=== PATIENT | male | born 1955 | race Caucasian/White ===

== ENCOUNTER → 2019-03-16 14:03 | Outpatient (CLI) | payer SELFPAY ==
--- NOTE | 2019-03-16 14:17 | RAD_ITS ---
STUDY: X-RAY CHEST REASON FOR EXAM: Male, 63 years old. COUGH X 5 WEEKS -- SOME SOB TECHNIQUE: Frontal and lateral views of the chest. COMPARISON: None. FINDINGS: The lungs are hyperexpanded. There are coarsened interstitial markings suggestive of mild chronic fibrosis. Scarring in the lung bases. No gross focal infiltrates. No gross effusions. Normal size heart. Normal mediastinum and thang. Normal visualized pulmonary arteries. Normal visualized aortic arch and descending thoracic aorta. There are diffuse degenerative changes of the visualized thoracic spine. Normal visualized ribs, clavicles, and shoulders. There is no demonstrated abnormality of the visualized soft tissue structures of the upper abdomen. RAD/Chest PA and Lateral IMPRESSION: There are findings consistent with COPD. There is no evidence of acute chest disease. Electronically Signed: Angel Cummings MD at 22:12 EST , Service support ,
[2019-03-16 14:46] LABS: Absolute Lymphocyte Count 1.53 X10^3/uL (0.83-4.51); Absolute Neutrophil Count 6.5 X10^3/uL (2.0-7.7); Basophil# 0.04 X10^3/uL; Basophil% 0.5 % (0-1); Eosinophils% 2.3 % (0-5); Hematocrit 48.2 % (40-54); Hemoglobin 15.3 g/dL (13.0-16.5); Lymphocyte # 1.53 X10^3/ul (4.0); Lymphocyte % 17.2 % (19-41); Mean Corp Hgb Conc 31.7 g/dL (32-36); Mean Corpuscular Hgb 28.4 pg (27.0-32.0); Mean Corpuscular Volume 89.6 fL (80-94); Mean Platelet Vol. 10.2 fl (6.2-12.0); Monocyte# 0.57 X10^3/uL; Monocyte% 6.4 % (0-10); NRBC Flagged by Analyzer 0 % (0-5); Neutrophil # 6.47 X10^3/uL (2.7-7.7); Neutrophil % 72.9 % (47-70); Platelet Count 188 K/mm3 (150-450); RBC Distribution Width CV 13.4 % (11.6-14.6); RBC Distribution Width SD 43.3 fl (35.1-43.9); Red Blood Count 5.38 M/mm3 (4.6-6.2); White Blood Count 8.9 K/mm3 (4.4-11.0)
[2019-03-16 15:01] LABS: ALB/GLOB Ratio 0.9 RATIO (0.9-2.4); AST(SGOT) 13 U/L (15-37); Alanine Aminotransfer ALT/SGPT 22 U/L (16-61); Albumin, Serum 3.3 g/dL (3.2-5.0); Alkaline Phosphatase 81 U/L (45-117); Anion Gap 3 (5-15); BUN 13 mg/dL (7-18); BUN/Creat Ratio 11.7 RATIO (10-20); Calcium,Total 8.6 mg/dL (8.5-10.1); Chloride 109 mmol/L (98-107); Creatinine, Serum 1.11 mg/dL (0.70-1.30); EST Glomerular Filtration Rate 71 mL/min (>60); Est Glom Filt Rate - Afr Amer 86 mL/min (>60); Globulin 3.6 g/dL (2.2-4.2); Glucose 87 mg/dL (74-106); Potassium 3.9 mmol/L (3.5-5.1); Protein, Total 6.9 g/dL (6.4-8.2); Sodium Level 142 mmol/L (136-145)
[2019-03-16 15:07] LABS: D-Dimer Quantitative (DVT/PE) 0.35 FEU/ug/m (0.27-0.49)
== END ==
PROVIDERS: Family Provider Internal Medicine; PCP Internal Medicine; Referring Provider Nurse Practitioner; Visit Provider Nurse Practitioner
DX: R05 Cough (principal)
CPT/HCPCS: 36415; 71046; 80053; 85025; 85379

== ENCOUNTER 2023-05-04 08:49 | Day surgery (SDC) | payer SELFPAY ==
[2023-05-04] VITALS (7 sets, daily range): BP systolic 107–141; BP diastolic 72–91; PULSE 63–74; RESP 16–18; TEMP 36.2–36.8; O2SAT 96–99; BMI 30.1
--- OUTSIDE RECORDS SUMMARY | 2023-05-04 09:15 | XMS RPT_ITS | CCD ---
Author Name Unknown Address [address] [place] [address] Organization [facility] Care Team Providers Care Dynamo Repairer Name Role Phone Dayanara Comer Unavailable Isaiah Villegas Unavailable Cherise Richardson Unavailable Angel Vazquez Unavailable Unavailable Lesly Swift Unavailable Unavailable Unavailable Unavailable Medications Completed/Discontinued Medications Medication Drug Class(es) Dates Sig (Normalized) Sig (Original) 200 actuat albuterol 0.09 mg/actuat metered dose inhaler (2 sources) beta2-Adrenergic Agonist Start: 03-04-2019 End: 03-18-2019 take 1 puff(s) by inhalation three times daily ProAir HFA 108 (90 Base) MCG/ACT Inhalation Aerosol Solution 1 (one) Puff tid for 0 days Quantity: 1 {Inhaler} Refills: 0 Ordered: 18-Mar-2019 Angel Vzaquez LPN Start : 04-Mar-2019 End : 18-Mar-2019 Inactive Problems Active Problems Problem Classification Problem Date Documented Da te Episodic/Chronic Chronic obstructive pulmonary disease and bronchiectasis (2 sources) Bronchitis; Translations: [Bronchitis] 03-18-2019 Episodic Influenza (2 sources) Influenza; Translations: [Influenza] 03-18-2019 Episodic Other connective tissue disease (1 source) Muscle weakness of upper limb; Translations: [Decreased strength of upper extremity] 03-18-2019 Episodic Other connective tissue disease (1 source) Imaging of thorax abnormal; Translations: [Abnormal chest xray] 03-18-2019 Episodic Past or Other Problems Problem Classification Problem Date Documented Date Episodic/Chronic Coronary atherosclerosis and other heart disease (1 source) Coronary atherosclerosis and other heart disease External cause codes: Fall (1 source) Accidental fall ; Translations: [Accidental fall, initial encounter] 03-18-2019 Pneumonia (except that caused by tuberculosis or sexually transmitted disease) (4 sources) Pneumonia (except that caused by tuberculosis or sexually transmitted disease) Unclassified (2 sources) Screening status; Translations: [Screening for prostate cancer] Resolved: 02-24-2013 12-05-2014 Unclassified (2 sources) BMI 31.0-31.9,adult Unclassified (11 sources) Unclassified (1 source) Upper respiratory infection, acute Unclassified (6 sources) Non-smoker; Translations: [Non-smoker] 03-18-2019 Unclassified (1 source) Adult general medical exam (V70.9) Unclassified (2 sources) Shoulder joint - range of movement - finding; Translations: [Decreased range of motion of left shoulder] 03-18-2019 Unclassified (1 source) Positive occult stool blood test Unclassified (1 source) Decreased strength of upper extremity Unclassified (1 source) Patient encounter status; Translations: [Adult general medical exam] Resolved: 02-24-2013 01-22-2015 Unclassified (1 source) SCREENING FOR CANCER OF THE PROSTATE (V76.44) Unclassified (1 source) Acute pain of left shoulder Unclassified (3 sources) BMI 30.0-30.9,adult Unclassified (1 source) Abnormal chest xray Unclassified (1 source) Accidental fall, initial encounter Results Test Name Value Interpretation Reference Range Facil ity Vital Signs Date Time Vital Sign Value Performing Clinician Facility 03-18-2019 10:00-0500 BMI (Body Mass Index) 30.28 kg/m2 Dayanara Comer [facility] Work Phone: 03-18-2019 10:00-0500 Body Temperature 97.5 [degF] [facility] Work Phone: Encounters Encounter Date Encounter Type Care Provider Facility Start: 03-18-2019 End: 03-18-2019 Office outpatient visit 15 minutes [facility] Start: 03-16-2019 End: 03-16-2019 Annotation/Addendum Dayanara [facility] Start: 03-04-2019 End: 03-04-2019 Office outpatient visit 15 minutes Dayanara Comer [facility] Start: 02-14-2019 End: 02-14-2019 Office outpatient visit 15 minutes Dayanara Comer [facility] Start: 03-06-2017 End: 03-06-2017 Office outpatient visit 15 minutes Dayanara Comer [facility] Start: 01-08-2017 End: 01-08-2017 Office outpatient visit 15 minutes Dayanara Comer [facility] Start: 05-18-2015 End: 05-18-2015 Office outpatient visit 10 minutes Dayanara Souleymane [facility] Start: 05-11-2015 End: 05-14-2015 Office outpatient visit 15 minutes Dayanara Comer [facility] Start: 04-16-2015 End: 04-16-2015 Office outpatient visit 15 minutes Dayanara Souleymane [facility] Start: 04-05-2013 End: 04-05-2013 Phone Encounter Dayanaratoy Comer [facility] Medicine Start: 02-24-2013 End: 02-24-2013 Patient encounter procedure Dayanara Comer [facility] Start: 01-10-2013 End: 01-10-2013 Patient encounter procedure Dayanara Souleymane [facility] Procedures Date Procedure Procedure Detail Performing Clinician Start: 03-16-2019 End: 03-16-2019 Chest PA and Lateral Comments: See Note; NOTES: [facility] Imaging Services [address] [place] [address] Chest PA and Lateral MR#: [id number] Acct: [id number] Name: FEDERICA CHILDRESS Rep #: [id number] : 1955 M 63 From: Angel Cummings MD PCP: Dayanara Comer DO Status: REG CLI Study: Chest PA and Lateral Date of Exam: 03/16/19 Exam# [id number] Ordering Dr: Cherise Richradson UPSETTER-C STUDY: X-RAY CHEST REASON FOR EXAM: Male, 63 years old. COUGH X 5 WEEKS -- SOME SOB TECHNIQUE: Frontal and lateral views of the chest. COMPARISON: None. FINDINGS: The lungs are hyperexpanded. There are coarsened interstitial markings suggestive of mild chronic fibrosis. Scarring in the lung bases. No gross focal infiltrates. No gross effusions. Normal size heart. Normal mediastinum and thang. Normal visualized pulmonary arteries. Normal visualized aortic arch and descending thoracic aorta. There are diffuse degenerative changes of the visualized thoracic spine. Normal visualized ribs, clavicles, and shoulders. There is no demonstrated abnormality of the visualized soft tissue structures of the upper abdomen. RAD/Chest PA and Lateral IMPRESSION: There are findings consistent with COPD. There is no evidence of acute chest disease. Electronically Signed: Angel Cummings MD at 22:12 EST , Service support , CC: FRIEDA Richardson; Dayanara Comer DO Yarn Mercerizer Operator: Signed Cherise Richardson Work Phone: Start: 08-01-2013 End: 08-01-2013 Emergency Department Summary Comments: See Note; NOTES: [facility] Medical Records Department [address] [place] [address] Emergency Department Summary MR#: [id number] Acct: [id number] Name: FEDERICA CHILDRESS Rep #: [id number] : 1955 57 From: Aristides Shaw MD PCP: Dayanara Comer DO Status: [facility] ER DATE OF SERVICE: 07/25/2013 METHOD OF ARRIVAL: Private car. CHIEF COMPLAINT: Right thigh pain. HISTORY OF PRESENT ILLNESS: A 57-year-old male patient of Dr. Comer who was running to [facility] had acute onset of pain in his posterior thigh. He states it is 9/10 in severity, worsened by straightening his legs out or locking. It is relieved by rest. He has never had anything like this before. PHYSICAL EXAMINATION: GENERAL: Reveals alert male in no acute distress. VITAL SIGNS: 99.3, 129/76, 92 and 16. EXTREMITIES: Significant physical exam findings include the exam of his right thigh which shows him to have moderate tenderness to palpation in the hamstring muscles. There is no contusion. There is no soft tissue swelling. There is muscle cramping and spasm present here. The remainder of the physical exam is unremarkable. Please see T-sheet for details. EMERGENCY DEPARTMENT COURSE: The patient was treated with Lortab, Valium and naproxen p.o. TREATMENT PLAN: The patient does not want x-rays. I feel that is a reasonable course of action. He will be discharged with pain medications and instructed to follow up with his primary care physician, Dr. Comer, in a week if not improving. DISPOSITION: Home, stable condition. IMPRESSION: Right hamstring strain. MD Nkechi Weinberg C: Dayanara Comer DO T: [facility] JOB: [id number] 08/01/13 1939 <Electronically signed by Aristides Shaw MD> Date Aristides Shaw MD CC: Dayanara Comer DO Date Dictated: 07/29/13944 Date Transcribed: 07/29/13944 Yarn Mercerizer Operator: Signed Dayanara Comer Start: 07-25-2013 End: 07-26-2013 Discharge Instruction Comments: See Note; NOTES: [facility] Medical Records Department [address] [place] [address] Discharge Instruction 07/25/13 3980 MR#: [id number] Acct: [id number] Name: FEDERICA CHILDRESS Rep #: [id number] : 1955 57 From: Aristides Shaw MD PCP: Dayanara Comer DO Status: DEP ER ED Disposition - Plan for ED Patient: Chief Complaint: Lower Extremity Injury Instructions: MUSCLE STRAIN, Extremity Prescriptions: Hydrocodone Bitart/Apap 5-325 [Mozelle 5/325] 1 - 2 tablet PO Q4H PRN PRN #20 tablet PRN Reason: Pain Diazepam [Valium] 5 mg PO TID PRN PRN #10 tablet PRN Reason: Muscle Spasm Naproxen [Naprosyn] 500 mg PO BID #20 tablet Referrals: Dayanara Comer DO [Primary Care Provider] - 1 Week if not improving What to do if you have Problems For any increased pain, shortness of breath, bleeding, nausea or vomiting, chest pain, or any unexpected problems, contact your doctor. Call [facility] ) or report to the closest Emergency Room. Call 911 if necessary. 07/25/13 2350 <Electronically signed by Aristides Shaw MD> Date Aristides Shaw MD CC: Dayanara Comer DO Dayanara Comer Rotator Cuff Repair - Left Angel Vazquez Plan of Treatment Date Care Activity Detail Author Start: 03-18-2019 Procedure Education Eprescribed prescriptions (G8553) [facility] Work Phone: Start: 03-16-2019 Fibrin dgradj products d-dimer quantitative D-Dimer (93604) [facility] Work Phone: Social History Date Type Detail Facility Exercise History: Exercise History: [facility] Work Phone: Living Situation: Living Situation: [facility] Work Phone: No Caffeine Use No Caffeine Use [facility]prehen [facility] Work Phone: Tobacco use: Tobacco use: [facility] Work Phone: Instructions Name Dates Details How to access health informa tion online Indication:Non-smoker Start:18-Mar-2019 Instruction Type:Patient Education How to access health informa tion online - Detail Indication:Non-smoker Start:18-Mar-2019 Instruction Type:Patient Education Patient Instructions Indication:Non-smoker Start:18-Mar-2019 Instruction Type:Provider Instructions for Treatment How to access health informa tion online Indication:Non-smoker Start:04-Mar-2019 Instruction Type:Patient Education How to access health informa tion online - Detail Indication:Non-smoker Start:04-Mar-2019 Instruction Type:Patient Education Patient Instructions Indication:BMI 30.0-30.9,adult Start:04-Mar-2019 Instruction Type:Provider Instructions for Treatment How to access health informa tion online Indication:Non-smoker Start:14-Feb-2019 Instruction Type:Patient Education How to access health informa tion online - Detail Indication:Non-smoker Start:14-Feb-2019 Instruction Type:Patient Education Patient Instructions Indication:Upper respiratory infection, acute Start:14-Feb-2019 Instruction Type:Provider Instructions for Treatment How to access health informa tion online Indication:Cough Start:06-Mar-2017 Instruction Type:Patient Education How to access health informa tion online - Detail Indication:Cough Start:06-Mar-2017 Instruction Type:Patient Education Patient Instructions Indication:Cough Start:06-Mar-2017 Instruction Type:Provider Instructions for Treatment How to access health informa tion online Indication:Non-smoker Start:08-Jan-2017 Instruction Type:Patient Education How to access health informa tion online - Detail Indication:Non-smoker Start:08-Jan-2017 Instruction Type:Patient Education Patient Instructions Indication:Decreased strength of upper extremity Start:08-Jan-2017 Instruction Type:Provider Instructions for Treatment Patient Instructions Indication:Walking pneumonia Start:18-May-2015 Instruction Type:Provider Instructions for Treatment How to access health informa tion online Indication:Wheezing Start:11-May-2015 Instruction Type:Patient Education How to access health informa tion online - Detail Indication:Wheezing Start:11-May-2015 Instruction Type:Patient Education Patient Instructions Indication:Wheezing Start:11-May-2015 Instruction Type:Provider Instructions for Treatment How to access health informa tion online Indication:Walking pneumonia Start:16-Apr-2015 Instruction Type:Patient Education How to access health informa tion online - Detail Indication:Walking pneumonia Start:16-Apr-2015 Instruction Type:Patient Education Patient Instructions Indication:Walking pneumonia Start:16-Apr-2015 Instruction Type:Provider Instructions for Treatment Patient Instructions Indication:Wheezing Start:24-Feb-2013 Instruction Type:Provider Instructions for Treatment Patient Instructions Indication:SCREENING FOR HYPERLIPIDEMIA Start:10-Jan-2013 Instruction Type:Provider Instructions for Treatment Additional Source Comments FOR RECORDS PERTAINING TO PATIENTS WHO ARE OR HAVE BEEN ENROLLED IN A CHEMICAL DEPENDENCY/SUBSTANCEABUSE PROGRAM, SOME INFORMATION MAY BE OMITTED. This clinical summary was aggregated from multiple sources. Caution should be exercised in using it in the provision of clinical care. This summary normalizes information from multiple sources, and as a consequence, information in this document may materially change the coding, format and clinical context of patient data. In addition, data may be omitted in some cases. CLINICAL DECISIONS SHOULD BE BASED ON THE PRIMARY CLINICAL RECORDS. [employer] provides no warranty or guarantee of the accuracy or completeness of information in this document.
[2023-05-04] MEDS: Lactated Ringers 1,000 ML 15 ML IV (09:29)
--- NOTE | 2023-05-04 09:33 | PCM.HP.BLA ---
History and Physical Date of Admission: 05/04/23 Date of Service: 04/23/23 MR#: [id number] Acct: [id number] Name: FEDERICA CONNOR Rep #: [id number] : 1955 Provider: Dr. Lakeisha Godwin MD Age/Sex: 67/M Location: [facility] Status: Signed Intake Vital Signs 06/03/2310:05 04/23/2408:48 Height 5 ft 10 in 5 ft 10 in Weight: 217 lb 222 lb 6 oz BMI 31.1 31.8 BP 152/94 H 169/85 H Blood Pressure Location Lt brachial Rt brachial Position Sitting Sitting Respiration 16 17 Pulse 72 73 Pulse Source Monitor Monitor Temp 98.2 F 97.4 F L Temp Source Temporal Temporal Pulse Oximetry (%) 97 97 Oxygen Delivery Method room air room air Intake Visit Reasons: COLONOSCOPY SCREENING, LARGE ON BACK Chief Complaint: colonoscopy screening, large lipoma on back Trimmer Climber Required: No Is patient in pain?: No Allergies No Known Allergies Allergy (Verified 04/23/23 09:49) Medications alprazolam 0.5 mg tablet (Xanax) 0.5 mg PO DAILY #1 TAB 06/03/22 [Rx Confirmed 04/23/23] ferrous sulfate 325 mg (65 mg iron) tablet (Feosol) 325 mg PO DAILY 06/03/22 [History Confirmed 04/23/23] [facility] Medical History (Updated 04/23/23 @ 12:[address] Lakeisha Godwin MD) Strain of tendon of right rotator cuff Surgical History (Updated 04/23/23 @ 09:47 by Lissy Tavarez LPN) History of colonoscopy History of rotator cuff surgery Family History Father CVA (cerebral vascular accident) Social History (Updated 04/23/23 @ 09:48 by Lissy Tavarez LPN) Smoking Status: Never smoker alcohol intake: never substance use type: does not use HPI HPI HPI: 67-year-old male presents due to history of colon polyps for colonoscopy and right upper back cyst. Patient last colonoscopy was 04/2010 patient had a hyperplastic polyp removed from his rectum at that time. Patient has bowel movements daily, denies any blood. Patient denies any chronic abdominal pain/nausea/vomiting/reflux. Patient denies any family history of colon cancer. Patient states he has had this right back lesion for about 15 years states that has gotten larger denies any pain. Patient denies ever having this area infected or change in overlying skin. ROS General General: No weight change, appetite, fatigue, colon cancer or breast cancer HEENT HEENT: No difficulty swallowing, eye injury, eye surgery, swollen glands or hoarseness Endo Endocrine: No thyroid disease, diabetes mellitus, thyroid cancer, Hair loss, heat intolerance or cold intolerance Skin Skin: No rash or changing moles Musc Musculoskeletal: No back problems, arthritis, rheumatoid arthritis, gout or joint pain Cardio Cardiovascular: No murmur, pacemaker, heart disease, atrial fibrillation, high blood pressure, heart attack, heart stent, palpitations, shortness of breat with exertion or chest pain Psych Psychiatric: No depression, anxiety or hearing voices Resp Respiratory: No shortness of breath, No sleep apnea, No cough, No COPD, No asthma, No emphysema and No wheezing Gastro Gastrointestinal: No abdominal pain, No nausea or vomiting, No diarrhea, No constipation, No blood in stool, No acid reflux, No hemorrhoids, No ulcers, No gallbladder problem and No black,tarry stools Cheikh Hematologic: No blood thinners, No blood disorders, No bleeding, No anemia and No blood clots Exam Const General: cooperative, healthy appearing, comfortable and no acute distress [facility] Head: normocephalic and atraumatic Neck Neck: supple Resp Effort & Inspection: normal respiratory effort Cardio Rate: regular rate GI Inspection: non-distended Palpation: soft and nontender Skin Other: Right medial upper back 6 x 6 cm likely sebaceous cyst, soft, nontender, no changes to the overlying skin. Neuro General: CN's II-XI intact bilaterally Extrem General: normal to inspection Psych Mental Status: mental status grossly normal Attitude: cooperative Assessment and Plan Assessment and Plan (1) Subcutaneous nodule of back: Status: Acute Comment: likely cyst vs lipoma (2) Hx of colonic polyp: Status: Acute Plan Discussed with patient that we can excise his right upper back lesion possible cyst versus lipoma in office. Patient can make an appointment whenever works for his schedule. Did discuss the procedure including risk not limited to bleeding, infection. I have discussed the above with the patient. I have offered the patient colonoscopy for evaluation. I have explained the risks/benefits of the procedure and described the procedure. I have discussed the risks with the patient, including but not limited to: infection, bleeding, perforation of the GI tract requiring emergency surgery, inability to complete the procedure, injury to any internal organs, complications of anesthesia, etc. - the patient understands and agrees to proceed. I have answered all the patient's questions to the patient's satisfaction and the patient has no further questions. The patient has been given instructions for the colon cleansing preparation. 1 day of clears MiraLAX Dulcolax prep Lakeisha Godwin M.D. Pager: [phone] [facility] [address] [place] [address], [facility], [address] [place] [address] Office: [phone] Coding Level of Care Code Off vis,new,level 3 Diagnoses Subcutaneous nodule of back R22.2 Hx of colonic polyp Z86.010 04/23/23 1217 <Electronically signed by Lakeisha Godwin MD> Date Lakeisha Godwin MD
--- NOTE | 2023-05-04 10:15 | COLBX_PTH ---
PATHOLOGY RESULTS PATIENT: FEDERICA CONNOR LOC: EN U#:[id number] AGE/SX: 67/M ROOM: RE05/04/[address]: Dr. Lakeisha Godwin MD : 1955 BED: DIS: 05/04/2023 SPEC #: [id number] RECD: 05/04/23 12:42 STATUS: MAKENNA SHELBIE #: [id number] JUAN LUIS: 05/04/23 10:[address]: Lakeisha Godwin DEPT: SURGICAL PATHOLOGY RECD BY: Marguerite Salazar ENTERED: 05/04/23 12:43 SP TYPE: COLON BX OT DR: Dr. Dayanara Comer DO Tissues: Ascending colon Descending colon Sigmoid colon biopsy Sigmoid colon biopsy Sigmoid colon biopsy Procedures: Surgery Specimen Level IV HEADER OPERATION: Colonoscopy, polypectomy PRE-OP DIAGNOSIS: Screening TISSUE SUBMITTED: A - Ascending colon polyp, B - Descending colon polyp x2, C - Sigmoid polyp, D - Sigmoid polyp #2 at 23.0 cm, E - Sigmoid polyp #2 base at 23.0 cm MICROSCOPIC DIAGNOSIS A. Ascending colon polyp, biopsy: Fragments of tubular adenoma. B. Descending colon polyp, biopsy: Fragments of tubular adenoma. C. Sigmoid colon polyp, biopsy: Fragments of tubular adenoma. D. Sigmoid colon polyp #2, biopsy: Tubular adenoma. E. Sigmoid colon polyp #2 base, biopsy: Fragment of benign colonic mucosa. See comment. AM:lucie 05/05/2023 COMMENT E. Neither hyperplastic nor adenomatous change is identified. Clinical correlation is suggested. MICROSCOPIC DESCRIPTION Slides are reviewed. GROSS DESCRIPTION A - Received in fixative is one container labeled with the patient's name and designated ascending colon polyp. The specimen consists of multiple irregular fragments of light aguilar soft tissue that in aggregate measure 1.0 x 0.3 x 0.1 cm. The specimen is totally submitted in one cassette. B - Received in fixative is one container labeled with the patient's name and designated descending colon polyp. The specimen consists of multiple irregular fragments of light aguilar soft tissue that in aggregate measure 1.8 x 0.6 x 0.1 cm. The specimen is totally submitted in one cassette. C - Received in fixative is one container labeled with the patient's name and designated sigmoid polyp. The specimen consists of multiple irregular fragments of light aguilar soft tissue that in aggregate measure 1.0 x 0.3 x 0.1 cm. The specimen is totally submitted in one cassette. D - Received in fixative is one container labeled with the patient's name and designated sigmoid polyp #2. The specimen consists of a aguilar-pink polyp measuring 1.2 x 0.5 x 0.3 cm. Presumed base is inked black. The polyp is bisected and submitted entirely in one cassettes. E - Received in fixative is one container labeled with the patient's name and designated Sigmoid polyp #2 base. The specimen consists of one irregular fragment of light aguilar soft tissue that measures 0.5 x 0.4 x 0.2 cm. The specimen is totally submitted in one cassette. / SJ:rg 05/04/2023 TC:5 CPT: 55826 x5
--- NOTE | 2023-05-04 10:44 | OP.CCLET_ITS ---
05/04/2023 Dayanara Comer [id number] [facility] [address] [place] [address] Re : Colonoscopy procedure for Sanna Childress Dear Dr. Comer This procedure was performed on Thursday, May 04, 2023. My impressions and recommendations are as follows: Impressions : - Hemorrhoids found on perianal exam. - Non-bleeding internal hemorrhoids. - Four 3 to 5 mm polyps in the sigmoid colon, in the descending colon and in the ascending colon, removed with a hot snare. Resected and retrieved. - One 8 mm polyp in the sigmoid colon, removed with a hot snare. Resected and retrieved. Biopsied. - The examination was otherwise normal. Recommendations : - Discharge patient to home. - Resume previous diet. - Continue present medications. - Await pathology results. - Repeat colonoscopy in 3 - 5 years for surveillance based on pathology results. My findings are described in the full procedure note, which is enclosed. If I can be of further assistance, please feel free to contact me at Doctor phone number(s): , Work: . Sincerely, MD Lakeisha Go MD 05/04/2023 10:44:03 AM This report has been signed electronically.
--- NOTE | 2023-05-04 10:44 | OP.COLON_ITS ---
Patient Name: Sanna Childress Procedure Date: 05/04/2023 10:05 AM Date of : 1955 Age: 67 Procedure: Colonoscopy Indications: Screening for colorectal malignant neoplasm Providers: Lakeisha Godwin MD Referring MD: Lakeisha Godwin MD Medicines: Monitored Anesthesia Care Patient Profile: This is a 67 year old male. Last Colonoscopy: 2010. Complications: No immediate complications. Procedure: Pre-Anesthesia Assessment: - Prior to the procedure, a History and Physical was performed, and patient medications and allergies were reviewed. The patient's tolerance of previous anesthesia was also reviewed. The risks and benefits of the procedure and the sedation options and risks were discussed with the patient. All questions were answered, and informed consent was obtained. Prior Anticoagulants: The patient has taken no anticoagulant or antiplatelet agents. ASA Grade Assessment: Per anesthesia. After reviewing the risks and benefits, the patient was deemed in satisfactory condition to undergo the procedure. After I obtained informed consent, the scope was passed under direct vision. Throughout the procedure, the patient's blood pressure, pulse, and oxygen saturations were monitored continuously. The Colonoscope was introduced through the anus and advanced to the cecum, identified by the appendiceal orifice, ileocecal valve and palpation. The colonoscopy was performed without difficulty. The patient tolerated the procedure well. The quality of the bowel preparation was good. Scope In: 10:15:42 AM Scope Withdrawal Time 0 hours 17 minutes 19 seconds Scope Out: 10:36:55 AM Total Procedure Duration Time 0 hours 21 minutes 13 seconds Findings: Hemorrhoids were found on perianal exam. Non-bleeding internal hemorrhoids were found. The hemorrhoids were Grade I (internal hemorrhoids that do not prolapse). Four semi-pedunculated polyps were found in the sigmoid colon, descending colon and ascending colon. The polyps were 3 to 5 mm in size. These polyps were removed with a hot snare. Resection and retrieval were complete. An 8 mm polyp was found in the sigmoid colon at 23 cm. The polyp was pedunculated. The polyp was removed with a hot snare, additional base was taken with a hot snare and sent separately as well.. Resection and retrieval were complete. Biopsies were taken with a cold forceps for histology. The exam was otherwise without abnormality. Impression: - Hemorrhoids found on perianal exam. - Non-bleeding internal hemorrhoids. - Four 3 to 5 mm polyps in the sigmoid colon, in the descending colon and in the ascending colon, removed with a hot snare. Resected and retrieved. - One 8 mm polyp in the sigmoid colon, removed with a hot snare. Resected and retrieved. Biopsied. - The examination was otherwise normal. Recommendation: - Discharge patient to home. - Resume previous diet. - Continue present medications. - Await pathology results. - Repeat colonoscopy in 3 - 5 years for surveillance based on pathology results. Procedure Code(s): --- Professional --- 82897, PT, Colonoscopy, flexible; with removal of tumor(s), polyp(s), or other lesion(s) by snare technique Diagnosis Code(s): --- Professional --- Z12.11, Encounter for screening for malignant neoplasm of colon K64.0, First degree hemorrhoids D12.5, Benign neoplasm of sigmoid colon D12.4, Benign neoplasm of descending colon D12.2, Benign neoplasm of ascending colon CPT copyright 2021 [employer]. All rights reserved. The codes documented in this report are preliminary and upon pile driver review may be revised to meet current compliance requirements. MD Lakeisha Go MD 05/04/2023 10:44:03 AM This report has been signed electronically. Number of Addenda: 0 Note Initiated On: 05/04/2023 10:05 AM
== END 2023-05-04 11:33 | disposition home or self-care (01) ==
LOC: EN 08:52 → AC 09:21
PROVIDERS: PCP Internal Medicine; Referring Provider Internal Medicine; Visit Provider Surgery
PROC: 0DJD8ZZ Inspection of Lower Intestinal Tract, Via Natural or Artificial Opening Endoscopic (ICD-10-PCS; CPT 45378; principal; 2023-05-04 10:10)
DX: Z12.11 Encounter for screening for malignant neoplasm of colon (principal); K64.0 First degree hemorrhoids; D12.2 Benign neoplasm of ascending colon; D12.4 Benign neoplasm of descending colon; D12.5 Benign neoplasm of sigmoid colon; Z86.010 Personal history of colon polyps; Z79.899 Other long term (current) drug therapy
CPT/HCPCS: 45385; 88305; J7120

== ENCOUNTER → 2023-08-11 | Outpatient (CLI) | payer SELFPAY ==
--- NOTE | 2023-08-11 | IMM_PTH ---
PATIENT: FEDERICA CONNOR LOC: [facility] U#:[id number] AGE/SX: 67/M ROOM: RE08/11/[address]: Dr. Darrick Fay MD : 1955 BED: DIS: 08/11/2023 SPEC #: [id number] RECD: 08/13/23 12:12 STATUS: MAKENNA REQ #: [id number] JUAN LUIS: 08/11/23 00:[address]: Darrick Fay DEPT: IMMUNOHISTOCHEMISTRY RECD BY: Angel Alcantara ENTERED: 08/13/23 12:12 SP TYPE: IMMUNO OT DR: Dr. Dayanara Comer, Tissues: D - PROSTATE LEFT Procedures: 34BE12 (add) P40 (initial) PHYSICIAN & INSTITUTION [place] [id number] SPECIMEN INFORMATION: Tissue Source: D- Prostate left apex Clinical Info: Elevated PSA Specimen Number: [id number] CPT code: 28609,95610 METHODOLOGY: Deparaffinized sections of prefer/formalin-fixed tissue or PAP/DQ stained slides are incubated with monoclonal/polyclonal antibodies/oligonucleotide probes. Localization is made via biotin free immunoperoxidase method. Appropriate controls are performed and reacted as expected. Results on target cell population are indicated in the following table: RESULTS: ANTIBODY / CLONE RESULT Block D P40 (BC28) negative 34BE12 (34BE12) negative These tests were developed and their performance characteristics determined by [facility]. They may not have been cleared or approved by the U.S. Food and Drug Administration. The FDA has determined that such clearance or approval is not necessary. The above immunohistochemical/dualISH markers are ordered and reviewed by the Pathologist. INTERPRETATION: Prostate, left apex, core biopsy: Adenocarcinoma. RODRIGO/ 08/14/2023
--- NOTE | 2023-08-11 08:00 | PROSBIL_PTH ---
PATIENT: FEDERICA CONNOR LOC: [facility] U#:[id number] AGE/SX: 67/M ROOM: RE08/11/[address]: Dr. Darrick Fay MD : 1955 BED: DIS: 08/11/2023 SPEC #: [id number] RECD: 08/11/23 17:18 STATUS: MAKENNA REAsya #: [id number] JUAN LUIS: 08/11/23 08:[address]: Darrick Fay DEPT: SURGICAL PATHOLOGY RECD BY: Aurora Siegel ENTERED: 08/12/23 12:13 SP TYPE: PROST BX LORAINE DR: Dr. Dayanara Comer DO Tissues: A - PROSTATE RIGHT B - PROSTATE RIGHT C - PROSTATE RIGHT D - PROSTATE LEFT E - PROSTATE LEFT F - PROSTATE LEFT Procedures: PROSTATE BX HEADER OPERATION: Prostate biopsy PRE-OP DIAGNOSIS: Elevated PSA TISSUE SUBMITTED: A - Right apex, B - Right mid, C - Right base, D - Left apex, E - Left mid, F - Left base MICROSCOPIC DIAGNOSIS A. Right prostate, apex, core biopsy: Prostatic tissue, negative for malignancy. B. Right prostate, mid, core biopsy: Prostatic tissue, negative for malignancy. C. Right prostate, base, core biopsy: Prostatic tissue, negative for malignancy. D. Left prostate, apex, core biopsy: A minute focus of prostatic adenocarcinoma. Jalen grade: 3+3=6 Number of cores involved: 1/2 Proportion of tissue involved: <5 % Perineural invasion: Not identified. Greatest tumor length: <0.1 cm See comment. E. Left prostate, mid, core biopsy: Prostatic tissue, negative for malignancy. Focal mild chronic inflammation. F. Left prostate, base, core biopsy: Prostatic tissue, negative for malignancy. Focal mild acute and chronic inflammation. SJ/mr 08/13/2023 COMMENT D. Immunohistochemistry ([id number]) supports the above diagnosis. Case has been reviewed in consultation with Dr. Peres who concurs with the above diagnosis. IDC:AM MICROSCOPIC DESCRIPTION Slides are reviewed. GROSS DESCRIPTION A - Received is one container designated prostate, right base. The specimen consists of two elongated fragments of light aguilar-white soft tissue each measuring 1.0 cm in length and 0.1 cm in diameter. The specimen is totally submitted in one cassette. B - Received is one container designated prostate, right mid. The specimen consists of one elongated fragments of light aguilar-white soft tissue measuring 1.0 cm in length and 0.1 cm in diameter. The specimen is totally submitted in one cassette. C - Received is one container designated prostate, right base. The specimen consists of two elongated fragments of light aguilar-white soft tissue each measuring 1.5 cm in length and 0.1 cm in diameter. The specimen is totally submitted in one cassette. D - Received is one container designated prostate, left apex. The specimen consists of two elongated fragments of light aguilar-white soft tissue each measuring 1.0 cm in length and 0.1 cm in diameter. The specimen is totally submitted in one cassette. E - Received is one container designated prostate, left mid. The specimen consists of two elongated fragments of light aguilar-white soft tissue each measuring 1.0 cm in length and 0.1 cm in diameter. The specimen is totally submitted in one cassette. F - Received is one container designated prostate, left base. The specimen consists of two elongated fragments of light aguilar-white soft tissue each measuring 1.5 cm in length and 0.1 cm in diameter. The specimen is totally submitted in one cassette. AM/mr 08/12/23 TC:0 CPT: 11615 x6
== END | disposition home or self-care (01) ==
PROVIDERS: PCP Internal Medicine; Visit Provider Urology
DX: R97.20 Elevated prostate specific antigen [PSA] (principal)
CPT/HCPCS: 88305; 88341; 88342; G0416

== ENCOUNTER → 2024-03-08 | Outpatient (CLI) | payer SELFPAY ==
[2024-03-08 14:43] LABS: PSA,Total- Diagnostic 4.94 ng/mL (0.0-4.0)
== END | disposition home or self-care (01) ==
LOC: LAB 13:39
PROVIDERS: PCP Internal Medicine; Referring Provider Nurse Practitioner; Visit Provider Nurse Practitioner
DX: C61 Malignant neoplasm of prostate (principal)
CPT/HCPCS: 36415; 84153

== ENCOUNTER → 2024-09-19 | Outpatient (CLI) | payer OTHER, SELFPAY ==
[2024-09-19 11:03] LABS: PSA,Total- Diagnostic 5.00 ng/mL (0.00-4.00)
--- OUTSIDE RECORDS SUMMARY | 2024-09-19 13:15 | XMS RPT_ITS | CCD ---
Author Organization [facility] Care Team Providers Care Child Abuse Worker Name Role Phone Dayanara Comer Unavailable Isaiah Villegas Unavailable Maria EstherroshnishyCherise Unavailable Angel Vazquez Unavailable Unavailable Lesly Swift Unavailable Unavailable Unavailable Unavailable Dr. Dayanara Comer Primary Care Provider Dr. Dayanara Comer Referring Provider Dr. Lakeisha Godwin Attending Provider [phone] Dr. Lakeisha Godwin Other Provider Dayanara Comer Referring Unavailable Laekisha Godwin Attending Unavailable Souleymane, Dayanara Primary Care Unavailable Souleymane, Dayanara Primary Care Unavailable Darrick Fay Attending Unavailable MilldaleZayda Attending Unavailable Souleymane, Dayanara Primary Care Unavailable MilldaleZayda Referring Unavailable Milldale, Zayda Attending Unavailable Souleymane, Dayanara Primary Care Unavailable Milldale, Zayda Referring Unavailable Souleymane, Dayanara Referring Unavailable Lakeisha Godwin Attending Unavailable Souleymane, Dayanara Primary Care Unavailable Souleymane, Dayanara Primary Care Unavailable Lakeisha Godwin Attending Unavailable Dayanara Comer Referring Unavailable Lakeisha Godwin Consulting Unavailable Lakeisha Godwin Attending Unavailable Souleymane, Dayanara Primary Care Unavailable Souleymane, Dayanara Referring Unavailable Medications Current Medications Medication Drug Class(es) Dates Sig (Normalized) Sig (Original) ALPRAZolam 0.5 mg oral tablet (1 source) Benzodiazepine Start: 06-03-2022 take 1 tablet by mouth once daily Alprazolam (Xanax) 0.5 mg tablet Active 0.5 MG PO DAILY 1 Daniela 3rd, 2023 11:00pm to take 30 minutes before right shoulder MRI; must have someone drive you to/ from radiology department ferrous sulfate 325 mg oral tablet (1 source) Start: 06-03-2022 take 1 tablet by mouth once daily Ferrous Sulfate (Feosol) 325 mg (65 mg iron) tablet Active 325 MG PO DAILY June 02, 2022 11:00pm Completed/Discontinued Medications Medication Drug Class(es) Dates Sig (Normalized) Sig (Original) acetaminophen 325 mg / HYDROcodone bitartrate 5 mg oral tablet (1 source) Opioid Agonist Start: 07-25-2013 End: 06-03-2022 take 1 tablet by mouth every four hours as needed Hydrocodone-Acetam inophen Discontinued 1 - 2 TABLET PO EVERY 4 HOURS NEEDED July 24, 2013 11:00pm June 03, 2022 10:07am 200 actuat albuterol 0.09 mg/actuat metered dose inhaler (2 sources) beta2-Adrenergic Agonist Start: 03-04-2019 End: 03-18-2019 take 1 puff(s) by inhalation three times daily ProAir HFA 108 (90 Base) MCG/ACT Inhalation Aerosol Solution 1 (one) Puff tid for 0 days Quantity: 1 {Inhaler} Refills: 0 Ordered: 18-Mar-2019 Angel Vazquez LPN Start : 04-Mar-2019 End : 18-Mar-2019 Inactive Start: 04-16-2015 End: 01-08-2017 Albuterol Sulfate (2.5 MG/3M L) 0.083% Inhalation Nebulization Solution 1 (one) Nebulized Soln Nebulized Soln q 6 hr prn for 0 days Quantity: 1 {Box} Refills: 0 Ordered: 08-Jan-2017 Hyacinth Huff RN Start : 16-Apr-2015 End : 08-Jan-2017 Inactive amoxicillin 875 mg / clavulanate 125 mg oral tablet (1 source) Penicillin-class Antibacterial Start: 02-14-2019 End: 02-28-2019 take 1 tablet by mouth twice daily at mealtime Amoxicillin-Pot Clavulanate 875-125 MG Oral Tablet 1 (one) Tablet PO BID for 14 days Quantity: 28 {Tablet} Refills: 0 Ordered: 14-Feb-2019 Hyacinth Almanza Start : 14-Feb-2019 End : 28-Feb-2019 Inactive Comments: Take with food Comment on above: Take with food azithromycin 500 mg oral tablet (1 source) Macrolide Antimicrobial Start: 04-16-2015 End: 05-11-2015 take 1 tablet by mouth once daily AZITHROMYCIN, 500MG (Oral Tablet) 1 (one) Tablet qd for 0 days Quantity: 10 {Tablet} Refills: 0 Ordered: 11-May-2015 Hyacinth Huff RN Start : 16-Apr-2015 End : 11-May-2015 Inactive benzonatate 200 mg oral capsule (1 source) Non-narcotic Antitussive Start: 03-04-2019 End: 03-18-2019 take 1 capsule by mouth three times daily as needed for cough Benzonatate 200 MG Oral Capsule 1 (one) Capsule tid prn for cough for 0 days Quantity: 30 {Capsule} Refills: 0 Ordered: 18-Mar-2019 Angel Vazquez LPN Start : 04-Mar-2019 End : 18-Mar-2019 Inactive cefuroxime 500 mg oral tablet (1 source) Cephalosporin Antibacterial Start: 04-16-2015 End: 05-11-2015 take 1 tablet by mouth twice daily CEFTIN, 500MG (Oral Tablet) 1 (one) Tablet bid for 0 days Quantity: 20 {Tablet} Refills: 0 Ordered: 11-May-2015 Hyacinth Huff RN Start : 16-Apr-2015 End : 11-May-2015 Inactive diazePAM 5 mg oral tablet (1 source) Benzodiazepine Start: 07-25-2013 End: 06-03-2022 take 5 mg by mouth three times daily as needed Diazepam Discontinued 5 MG PO 3 TIMES DAILY NEEDED July 24, 2013 11:00pm June 03, 2022 10:07am 12 hr guaiFENesin 600 mg extended release oral tablet (1 source) Start: 03-04-2019 End: 03-18-2019 take 1 tablet by mouth twice daily Mucinex 600 MG Oral Tablet Extended Release 12 Hour 1 (one) Tablet bid for 0 days Quantity: 30 {Tablet} Refills: 0 Ordered: 18-Mar-2019 Angel Vazquez LPN Start : 04-Mar-2019 End : 18-Mar-2019 Inactive levoFLOXacin 500 mg oral tablet (1 source) Quinolone Antimicrobial Start: 03-04-2019 End: 03-14-2019 take 1 tablet by mouth once daily Levaquin 500 MG Oral Tablet 1 Tablet qd for 10 days Quantity: 10 {Tablet} Refills: 0 Ordered: 04-Mar-2019 Cherise Richardson CNP Start : 04-Mar-2019 End : 14-Mar-2019 Inactive naproxen 500 mg oral tablet (1 source) Nonsteroidal Anti-inflammatory Drug Start: 07-25-2013 End: 06-03-2022 take 500 mg by mouth twice daily Naproxen Discontinued 500 MG PO TWICE A DAY July 24, 2013 11:00pm June 03, 2022 10:07am No routine meds at this time. (1 source) No routine meds at this time. Inactive oseltamivir 75 mg oral capsule (1 source) Neuraminidase Inhibitor Start: 03-06-2017 End: 03-11-2017 take 1 capsule by mouth twice daily Tamiflu 75 MG Oral Capsule 1 (one) Capsule bid for 5 days Quantity: 10 {Capsule} Refills: 0 Ordered: 06-Mar-2017 Cherise Richardson CNP Start : 06-Mar-2017 End : 11-Mar-2017 Inactive predniSONE 10 mg oral tablet (2 sources) Start: 03-04-2019 End: 03-18-2019 predniSONE 10 MG Oral Tablet 1 (one) Tablet 3dailyx 3 days 2 daily x 3 days 1 daily x 3 days for 0 days Quantity: 18 {Tablet} Refills: 0 Ordered: 18-Mar-2019 Angel Vazquez LPN Start : 04-Mar-2019 End : 18-Mar-2019 Inactive Comments: with food Start: 05-11-2015 End: 05-18-2015 PREDNISONE, 20MG (Oral Table t) 1 (one) Tablet bid for two days then qd for 4days with food for 0 days Quantity: 8 {Tablet} Refills: 0 Ordered: 18-May-2015 Hyacinth Huff RN Start : 11-May-2015 End : 18-May-2015 Inactive Comment on above: with food NEGATED: Highlighted row has not occurred!drug or medication (1 source) No Known Histori ilene Medications Problems Active Problems Problem Classification Problem Date Documented Da te Episodic/Chronic Cancer of prostate (2 sources) Malignant neoplasm of prostate; Translations: [Malignant neoplasm of prostate] Onset: 03-08-2024 Chronic Chronic obstructive pulmonary disease and bronchiectasis (2 sources) Bronchitis; Translations: [Bronchitis] 03-18-2019 Episodic Influenza (2 sources) Influenza; Translations: [Influenza] 03-18-2019 Episodic Other and unspecified benign neoplasm (1 source) History of polyp of colon; Translations: [Personal history of colonic polyps] 04-23-2023 Episodic Other connective tissue disease (1 source) Muscle weakness of upper limb; Translations: [Decreased strength of upper extremity] 03-18-2019 Episodic Other connective tissue disease (1 source) Imaging of thorax abnormal; Translations: [Abnormal chest xray] 03-18-2019 Episodic Comment on above: suggestive of COPD Other gastrointestinal disorders (1 source) Occult blood in stools; Translations: [Positive occult stool blood test] 03-18-2019 Episodic Other lower respiratory disease (11 sources) Cough; Translations: [Cough] 03-18-2019 Episodic Comment on above: normal D dimer, spri ometry lung age 81 pt is 63 , Will give solumedrol, inhaler and reevaluate if still with cough Other lower respiratory disease (4 sources) Wheezing; Translations: [Wheezing] 03-18-2019 Episodic Other non-traumatic joint disorders (1 source) Shoulder pain; Translations: [Acute pain of left shoulder] 03-18-2019 Episodic Other nutritional; endocrine; and metabolic disorders (4 sources) Body mass index 30+ - obesity; Translations: [BMI 30.0-30.9,adult] Resolved: 03-06-2017 03-04-2019 Chronic Other skin disorders (1 source) Nodule of subcutaneous tissue of back; Translations: [Localized swelling, mass and lump, trunk] 04-23-2023 Episodic Other upper respiratory infections (1 source) Acute upper respiratory infection; Translations: [Upper respiratory infection, acute] 03-18-2019 Episodic Pneumonia (except that caused by tuberculosis or sexually transmitted disease) (1 source) Pneumonia, organism unspecified; Translations: [Walking pneumonia] 03-18-2019 Episodic Comment on above: RLL Sprains and strains (1 source) Strain of muscle(s) and tendon(s) of the rotator cuff of right shoulder, initial encounter; Translations: [Strain of tendon of right rotator cuff] 06-03-2022 Episodic Past or Other Problems Problem Classification Problem Date Documented Date Episodic/Chronic Coronary atherosclerosis and other heart disease (1 source) Coronary atherosclerosis and other heart disease External cause codes: Fall (1 source) Accidental fall ; Translations: [Accidental fall, initial encounter] 03-18-2019 Other and unspecified benign neoplasm (2 sources) Personal history of colonic polyps; Translations: [Personal history of colonic polyps] Onset: 04-23-2023 04-23-2023 Episodic Other screening for suspected conditions (not mental disorders or infectious disease) (2 sources) Elevated prostate specific antigen [PSA]; Translations: [Encounter for screening for malignant neoplasm of colon] Onset: 05-08-2023 Episodic Other skin disorders (2 sources) Localized swelling, mass and lump, trunk; Translations: [Localized superficial swelling, mass, or lump] Onset: 04-23-2023 04-23-2023 Episodic Pneumonia (except that caused by tuberculosis or [...] Results Test Name Value Interpretation Reference Range Facility PSA,Total- Diagnosticon PSA, DIAGNOSTIC 4.94 ng/mL High 0.0-4.0 [facility] Comment on above: Result Comment: This test was performed using the TPSA assay method for the [employer] chemistry system. Values obtained with different assay methods cannot be used interchangably. When changing PSA assays in the course of monitoring a patient, additional sequential testing should be carried out to confirm baseline values. Performed By: #### L [id number] #### [facility] [address] [place] [address], [id number] [id number] (add)on 08-11-2023 [id number] (add) ---- Patient Age/Sex Location Account Attending Physician FEDERICA CONNOR 67/M LABSPEC [id number] Dr. Darrick Fay MD Specimen: [id number] Received: 08/13/23 Status: MAKENNA Moe Num: [id number] Spec Type: IMMUNO Subm Dr: Dr. Darrick Fay MD PHYSICIAN INSTITUTION [address] [address] SPECIMEN INFORMATION: Tissue Source: D- Prostate left apex Clinical Info: Elevated PSA Specimen Number: [id number] CPT code: 76907,47574 METHODOLOGY: Deparaffinized sections of prefer/formalin-fixed tissue or PAP/DQ stained slides are incubated with monoclonal/polyclonal antibodies/oligonucleoti de probes. Localization is made via biotin free immunoperoxidase method. Appropriate controls are performed and reacted as expected. Results on target cell population are indicated in the following table: RESULTS: ANTIBODY / CLONE RESULT Block D P40 (BC28) negative 34BE12 (34BE12) negative These tests were developed and their performance characteristics determined by [facility]. They may not have been cleared or approved by the U.S. Food and Drug Administration. The FDA has determined that such clearance or approval is not necessary. The above immunohistochemical/dual ROBERTO markers are ordered and reviewed by the Pathologist. INTERPRETATION: Prostate, left apex, core biopsy: Adenocarcinoma. /mr 08/14/2023 Signed (signature on file) Dr. Robles Fuentes MD 08/14/23 0950 Normal [facility] Comment on above: Performed By: #### [id number]. #### [facility] [address] [place], [place], [address] PROSTATE BXon 08-11-2023 PROSTATE BX ---- Patient Age/Sex Location Account Attending Physician GEETAFEDERICA Bolden 67/M LABSPEC [id number] Dr. Darrick Fay MD Specimen: [id number] Received: 08/11/23 Status: MAKENNA Rosa Num: [id number] Spec Type: PROST BX Subm Dr: Dr. Darrick Fay MD HEADER OPERATION: Prostate biopsy PRE-OP DIAGNOSIS: Elevated PSA TISSUE SUBMITTED: A - Right apex, B - Right mid, C - Right base, D - Left apex, E - Left mid, F - Left base MICROSCOPIC DIAGNOSIS A. Right prostate, apex, core biopsy: Prostatic tissue, negative for malignancy. B. Right prostate, mid, core biopsy: Prostatic tissue, negative for malignancy. C. Right prostate, base, core biopsy: Prostatic tissue, negative for malignancy. D. Left prostate, apex, core biopsy: A minute focus of prostatic adenocarcinoma. Jalen grade: 3+3=6 Number of cores involved: 1/2 Proportion of tissue involved: <5 % Perineural invasion: Not identified. Greatest tumor length: <0.1 cm See comment. E. Left prostate, mid, core biopsy: Prostatic tissue, negative for malignancy. Focal mild chronic inflammation. F. Left prostate, base, core biopsy: Prostatic tissue, negative for malignancy. Focal mild acute and chronic inflammation. SJ/mr 08/13/2023 COMMENT D. Immunohistochemistry ([id number]) supports the above diagnosis. Case has been reviewed in consultation with Dr. Peres who concurs with the above diagnosis. IDC:AM MICROSCOPIC DESCRIPTION Slides are reviewed. Patient Age/Sex Location Account Attending Physician FEDERICA CONNOR 67/M LABSPEC [id number] Dr. Darrick Fay MD GROSS DESCRIPTION A - Received is one container designated prostate, right base. The specimen consists of two elongated fragments of light aguilar-white soft tissue each measuring 1.0 cm in length and 0.1 cm in diameter. The specimen is totally submitted in one cassette. B - Received is one container designated prostate, right mid. The specimen consists of one elongated fragments of light aguilar-white soft tissue measuring 1.0 cm in length and 0.1 cm in diameter. The specimen is totally submitted in one cassette. C - Received is one container designated prostate, right base. The specimen consists of two elongated fragments of light aguilar-white soft tissue each measuring 1.5 cm in length and 0.1 cm in diameter. The specimen is totally submitted in one cassette. D - Received is one container designated prostate, left apex. The specimen consists of two elongated fragments of light aguilar-white soft tissue each measuring 1.0 cm in length and 0.1 cm in diameter. The specimen is totally submitted in one cassette. E - Received is one container designated prostate, left mid. The specimen consists of two elongated fragments of light aguilar-white soft tissue each measuring 1.0 cm in length and 0.1 cm in diameter. The specimen is totally submitted in one cassette. F - Received is one container designated prostate, left base. The specimen consists of two elongated fragments of light aguilar-white soft tissue each measuring 1.5 cm in length and 0.1 cm in diameter. The specimen is totally submitted in one cassette. MALVIN/ 08/12/23 TC:0 [facility]: [id number] x6 Patient Age/Sex Location Account Attending Physician FEDERICA CONNOR 67/[id number]. Darrick Fay MD Signed (signature on file) Dr. Robles Fuentes MD 08/14/23 0942 Normal [facility] Comment on above: Performed By: #### PPROSB #### [facility] [address] [place], [place], [address] Surgery Visit Reporton 06-24 Surgery Visit Report [facility] [address] [place], [place] [address] OFFICE VISIT Date of Service: 06/25/23 MR#: [id number] Acct: [id number] Name: FEDERICA CONNOR Rep #: [id number] : 1955 Provider: Dr. Lakeisha miranda MD Age/Sex: 67/M Location: [facility] Status: Signed Intake Vital Signs 05/04/23 09:25 Height 5 ft 11 in Intake Visit Reasons: EXCISION OF CYST UPPER BACK Chief Complaint: Excision subcutaneous nodule upper back Vocational Nursing Instructor Required: No Is patient in pain?: No Allergies No Known Allergies Allergy (Verified 06/25/23 08:26) Medications alprazolam 0.5 mg tablet (Xanax) 0.5 mg PO DAILY #1 TAB 06/03/22 [Rx Confirmed 06/25/23] ferrous sulfate 325 mg (65 mg iron) tablet (Feosol) 325 mg PO DAILY 06/03/22 [History Confirmed 06/25/23] [facility] Medical History (Updated 06/25/23 @ 13:[address] Lakeisha Godwin MD) Anemia Hx of colonic polyp Non-smoker Strain of tendon of right rotator cuff Subcutaneous nodule of back Wears glasses Surgical History History of colonoscopy History of rotator cuff surgery Family History Father CVA (cerebral vascular accident) Social History Smoking Status: Never smoker alcohol intake: never substance use type: does not use HPI HPI HPI: 67-year-old male presents for excision of back sebaceous cyst. ROS General General: No weight change, appetite, fatigue, colon cancer or breast cancer HEENT HEENT: No difficulty swallowing, eye injury, eye surgery, swollen glands or hoarseness Endo Endocrine: No thyroid disease, diabetes mellitus, thyroid cancer, Hair loss, heat intolerance or cold intolerance Skin Skin: No rash or changing moles Musc Musculoskeletal: No back problems, arthritis, rheumatoid arthritis, gout or joint pain Cardio Cardiovascular: No murmur, pacemaker, heart disease, atrial fibrillation, high blood pressure, heart attack, heart stent, palpitations, shortness of breat with exertion or chest pain Psych Psychiatric: No depression, anxiety or hearing voices Resp Respiratory: No shortness of breath, No sleep apnea, No cough, No COPD, No asthma, No emphysema and No wheezing Gastro Gastrointestinal: No abdominal pain, No nausea or vomiting, No diarrhea, No constipation, No blood in stool, No acid reflux, No hemorrhoids, No ulcers, No gallbladder problem and No black,tarry stools Cheikh Hematologic: No blood thinners, No blood disorders, No bleeding, No anemia and No blood clots Office Procedures Excision and Linear Repair Procedure performed by: Lakeisha Godwin Informed consent given: Yes Consent signed: Yes Size of lesion (cm): 6 Amount of lidocaine applied (mL): 8 Preparation: chlorhexidine Device used for excision: #15 blade Hemostasis: pressure Buried vertical mattress suture used: No Sutures used for cuticle layer: Yes (3-0 Vicryl interrupted subdermal) Patient tolerated procedure: well Complications: No Procedure Time Out Time Out Informed consent given: Yes Consent signed: Yes Time out checklist: patient, procedure, site marked/identified, positioning of patient, supplies available, allergies confirmed and team agrees on procedure Time out staff in room: Yes Time out verified: Yes Time out date: 06/25/23 Time out time: 08:27 Assessment and Plan Assessment and Plan (1) Subcutaneous nodule of back: Status: Acute Comment: s/p excision upper back sebaceous cyst 06/25/23 Plan Patient tolerated excision of sebaceous cyst well in office. Specimens consistent with sebaceous cyst was not sent to pathology. Patient will follow-up as needed. Patient is agreeable with plan. Lakeisha Godwin M.D. Pager: [phone] [facility] [address] [place] [address], [facility], [address] [place] [address] Office: [phone] Coding Level of Care Code Attention Prestidigitator Diagnoses Subcutaneous nodule of back R22.2 Comment 77642 Clinical Quality Measures High Blood Pressure Screening/Follow Up High Blood Pressure follow-up Instructions: Recommended Blood Pressure Follow-Up Interventions: *Normal BP: No follow-up required for SBP < 120 mmHg and DBP < 80 mmHg: *Elevated BP: Patients with SBP of 120-129 mmHg and DBP < 80 mmHg: *Referral to Alternate/Primary Care Health Homicide Squad Lieutenant OR * Follow-up with rescreen in 2 to 6 months AND recommend nonpharmacologic interventions * First Hypertensive BP Reading: Patients with one elevated reading of SBP >=130 mmHg OR DBP >= 80 mmHg: *Referral to Alternate/Primary Care Health Professional OR *Follow-up with rescreen in >1 day and < 4 weeks AND recommend nonpharmacologic intervent (more content not included)... Normal [facility] Colonoscopy Reporton 024 Colonoscopy Report [facility] Medical Records Department [address] [place] [id number] Colonoscopy Report MR#: [id number] Acct: [id number] Name: FEDERICA CONNOR Rep #: [id number] : 1955 67 From: Lakeisha Godwin MD PCP: Dr. Dayanara Comer, DO Status[place] Patient Name: Federica Connor Procedure Date: 05/04/2023 10:05 AM Date of : 1955 Age: 67 Procedure: Colonoscopy Indications: Screening for colorectal malignant neoplasm Providers: Lakeisha Godwni MD Referring MD: Lakeisha Godwin MD Medicines: Monitored Anesthesia Care Patient Profile: This is a 67 year old male. Last Colonoscopy: 2010. Complications: No immediate complications. Procedure: Pre-Anesthesia Assessment: - Prior to the procedure, a History and Physical was performed, and patient medications and allergies were reviewed. The patient's tolerance of previous anesthesia was also reviewed. The risks and benefits of the procedure and the sedation options and risks were discussed with the patient. All questions were answered, and informed consent was obtained. Prior Anticoagulants: The patient has taken no anticoagulant or antiplatelet agents. ASA Grade Assessment: Per anesthesia. After reviewing the risks and benefits, the patient was deemed in satisfactory condition to undergo the procedure. After I obtained informed consent, the scope was passed under direct vision. Throughout the procedure, the patient's blood pressure, pulse, and oxygen saturations were monitored continuously. The Colonoscope was introduced through the anus and advanced to the cecum, identified by the appendiceal orifice, ileocecal valve and palpation. The colonoscopy was performed without difficulty. The patient tolerated the procedure well. The quality of the bowel preparation was good. Scope In: 10:15:42 AM Scope Withdrawal Time 0 hours 17 minutes 19 seconds Scope Out: 10:36:55 AM Total Procedure Duration Time 0 hours 21 minutes 13 seconds Findings: Hemorrhoids were found on perianal exam. Non-bleeding internal hemorrhoids were found. The hemorrhoids were Grade I (internal hemorrhoids that do not prolapse). Four semi-pedunculated polyps were found in the sigmoid colon, descending colon and ascending colon. The polyps were 3 to 5 mm in size. These polyps were removed with a hot snare. Resection and retrieval were complete. An 8 mm polyp was found in the sigmoid colon at 23 cm. The polyp was pedunculated. The polyp was removed with a hot snare, additional base was taken with a hot snare and sent separately as well.. Resection and retrieval were complete. Biopsies were taken with a cold forceps for histology. The exam was otherwise without abnormality. Impression: - Hemorrhoids found on perianal exam. - Non-bleeding internal hemorrhoids. - Four 3 to 5 mm polyps in the sigmoid colon, in the descending colon and in the ascending colon, removed with a hot snare. Resected and retrieved. - One 8 mm polyp in the sigmoid colon, removed with a hot snare. Resected and retrieved. Biopsied. - The examination was otherwise normal. Recommendation: - Discharge patient to home. - Resume previous diet. - Continue present medications. - Await pathology results. - Repeat colonoscopy in 3 - 5 years for surveillance based on pathology results. Procedure Code(s): --- Professional --- 20897, PT, Colonoscopy, flexible; with removal of tumor(s), polyp(s), or other lesion(s) by snare technique Diagnosis Code(s): --- Professional --- Z12.11, Encounter for screening for malignant neoplasm of colon K64.0, First degree hemorrhoids D12.5, Benign neoplasm of sigmoid colon D12.4, Benign neoplasm of descending colon D12.2, Benign neoplasm of ascending colon CPT copyright 2021 [employer]. All rights reserved. The codes documented in this report are preliminary and upon outpatient coder review may be revised to meet current compliance requirements. MD Lakeisha Go MD 05/04/2023 10:44:03 AM This report has been signed electronically. Number of Addenda: 0 Note Initiated On: 05/04/2023 10:05 AM 05/04/23 1044 Date Lakeisha Godwin MD Cosigner Signature: Date (if indicated) CC: Dr. Dayanara Comer DO; Dr. Lakeisha Godwin MD Date Dictated: 05/04/23 1005 Date Transcribed: Wound/Ostomy Nurse: TR Signed [facility] Surgery Specimen Level Tommy 05-04-2023 Surgery Specimen Level IV Patient Age/Sex Location Account Attending Physician FEDERICA CONNOR 67/M EN [id number] Dr. Lakeisha Godwin MD Specimen: [id number] Received: 05/04/23-1242 Status: MAKENNA Hoover Num: [id number] Spec Type: COLON BX Subm Dr: Dr. Lakeisha Godwin MD HEADER OPERATION: Colonoscopy, polypectomy PRE-OP DIAGNOSIS: Screening TISSUE SUBMITTED: A - Ascending colon polyp, B - Descending colon polyp x2, C - Sigmoid polyp, D - Sigmoid polyp #2 at 23.0 cm, E - Sigmoid polyp #2 base at 23.0 cm MICROSCOPIC DIAGNOSIS A. Ascending colon polyp, biopsy: Fragments of tubular adenoma. B. Descending colon polyp, biopsy: Fragments of tubular adenoma. C. Sigmoid colon polyp, biopsy: Fragments of tubular adenoma. D. Sigmoid colon polyp #2, biopsy: Tubular adenoma. E. Sigmoid colon polyp #2 base, biopsy: Fragment of benign colonic mucosa. See comment. AM:lucie 05/05/2023 COMMENT E. Neither hyperplastic nor adenomatous change is identified. Clinical correlation is suggested. MICROSCOPIC DESCRIPTION Slides are reviewed. GROSS DESCRIPTION A - Received in fixative is one container labeled with the patient's name and designated ascending colon polyp. The specimen consists of multiple irregular fragments of light aguilar soft tissue that in aggregate measure 1.0 x 0.3 x 0.1 cm. The specimen is totally submitted in one cassette. B - Received in fixative is one container labeled with the patient's name and designated descending colon polyp. The specimen consists of multiple irregular fragments of light aguialr soft tissue that in aggregate measure 1.8 x 0.6 x 0.1 cm. The specimen is totally submitted in one cassette. C - Received in fixative is one container labeled with the patient's name and designated sigmoid polyp. The specimen consists of multiple irregular fragments of light aguilar soft tissue that in aggregate measure 1.0 x 0.3 x 0.1 cm. The specimen is totally submitted in Patient Age/Sex Location Account Attending Physician FEDERICA CONNOR 67/M EN [id number] Dr. Lakeisha Godwin MD one cassette. D - Received in fixative is one container labeled with the patient's name and designated sigmoid polyp #2. The specimen consists of a aguilar-pink polyp measuring 1.2 x 0.5 x 0.3 cm. Presumed base is inked black. The polyp is bisected and submitted entirely in one cassettes. E - Received in fixative is one container labeled with the patient's name and designated Sigmoid polyp #2 base. The specimen consists of one irregular fragment of light aguilar soft tissue that measures 0.5 x 0.4 x 0.2 cm. The specimen is totally submitted in one cassette. / SJ:rg 05/04/2023 TC:5 CPT: 31778 x5 Patient Age/Sex Location Account Attending Physician FEDERICA CONNOR 67/M EN [id number] Dr. Lakeisha Godwin MD Signed (signature on file) Dr. Cecil Peres DO 05/05/23 1249 Normal [facility] Comment on above: Performed By: #### PSUIV #### [facility] [address] [place] [address] [place], [place], [address] Surgery Visit Reporton 04-[address] [facility] [address] [place] [address] OFFICE VISIT Date of Service: 04/23/23 MR#: [id number] Acct: [id number] Name: FEDERICA CONNOR Shy Rep #: [id number] : 1955 Provider: Dr. Lakeisha miranda MD Age/Sex: 67/M Location: [facility] Status: Signed Intake Vital Signs 06/03/22 11:05 04/23/23 09:48 Height 5 ft 10 in 5 ft 10 in Weight: 217 lb 222 lb 6 oz BMI 31.1 31.8 BP 152/94 H 169/85 H Blood Pressure Location Lt brachial Rt brachial Position Sitting Sitting Respiration 16 17 Pulse 72 73 Pulse Source Monitor Monitor Temp 98.2 F 97.4 F L Temp Source Temporal Temporal Pulse Oximetry (%) 97 97 Oxygen Delivery Method room air room air Intake Visit Reasons: COLONOSCOPY SCREENING, LARGE ON BACK Chief Complaint: colonoscopy screening, large lipoma on back Vocational Nursing Instructor Required: No Is patient in pain?: No Allergies No Known Allergies Allergy (Verified 04/23/23 09:49) Medications alprazolam 0.5 mg tablet (Xanax) 0.5 mg PO DAILY #1 TAB 06/03/22 [Rx Confirmed 04/23/23] ferrous sulfate 325 mg (65 mg iron) tablet (Feosol) 325 mg PO DAILY 06/03/22 [History Confirmed 04/23/23] [facility] Medical History (Updated 04/23/23 @ 12:[address] Lakeisha Godwin MD) Strain of tendon of right rotator cuff Surgical History (Updated 04/23/23 @ 09:47 by Lissy Tavarez LPN) History of colonoscopy History of rotator cuff surgery Family History Father CVA (cerebral vascular accident) Social History (Updated 04/23/23 @ 09:48 by Lissy Tavarez LPN) Smoking Status: Never smoker alcohol intake: never substance use type: does not use HPI HPI HPI: 67-year-old male presents due to history of colon polyps for colonoscopy and right upper back cyst. Patient last colonoscopy was 04/2010 patient had a hyperplastic polyp removed from his rectum at that time. Patient has bowel movements daily, denies any blood. Patient denies any chronic abdominal pain/nausea/vomiting/ref lux. Patient denies any family history of colon cancer. Patient states he has had this right back lesion for about 15 years states that has gotten larger denies any pain. Patient denies ever having this area infected or change in overlying skin. ROS General General: No weight change, appetite, fatigue, colon cancer or breast cancer HEENT HEENT: No difficulty swallowing, eye injury, eye surgery, swollen glands or hoarseness Endo Endocrine: No thyroid disease, diabetes mellitus, thyroid cancer, Hair loss, heat intolerance or cold intolerance Skin Skin: No rash or changing moles Musc Musculoskeletal: No back problems, arthritis, rheumatoid arthritis, gout or joint pain Cardio Cardiovascular: No murmur, pacemaker, heart disease, atrial fibrillation, high blood pressure, heart attack, heart stent, palpitations, shortness of breat with exertion or chest pain Psych Psychiatric: No depression, anxiety or hearing voices Resp Respiratory: No shortness of breath, No sleep apnea, No cough, No COPD, No asthma, No emphysema and No wheezing Gastro Gastrointestinal: No abdominal pain, No nausea or vomiting, No diarrhea, No constipation, No blood in stool, No acid reflux, No hemorrhoids, No ulcers, No gallbladder problem and No black,tarry stools Cheikh Hematologic: No blood thinners, No blood disorders, No bleeding, No anemia and No blood clots Exam Const General: cooperative, healthy appearing, comfortable and no acute distress HENMT Head: normocephalic and atraumatic Neck Neck: supple Resp Effort Inspection: normal respiratory effort Cardio Rate: regular rate GI Inspection: non-distended Palpation: soft and nontender Skin Other: Right medial upper back 6 x 6 cm likely sebaceous cyst, soft, nontender, no changes to the overlying skin. Neuro General: CN's II-XI intact bilaterally Extrem General: normal to inspection Psych Mental Status: mental status grossly normal Attitude: cooperative Assessment and Plan Assessment and Plan (1) Subcutaneous nodule of back: Status: Acute Comment: likely cyst vs lipoma (2) Hx of colonic polyp: Status: Acute Plan Discussed with patient that we can excise his right upper back lesion possible cyst versus lipoma in office. Patient can make an appointment whenever works for his schedule. Did discuss the procedure including risk not limited to bleeding, infection. I have discussed the above with the patient. I have offered the patient colonoscopy for evaluation. I have explained the risks/benefits of the procedure and described the procedure. I have discussed the risks with the patient, including but not limited to: infection, bleeding, perforation of the GI tract requiring emergency surgery, i (more content not included)... Normal [facility] Rapid Flu (56161 x 2)on FLUAV Ag IA Ql (Throat) Positive Normal [facility] Work Phone: Comment on above: A, no flu shot LIPID PANEL ([id number])Ordered B y: Human Resources File Clerk on 01-21-2013 Cholesterol [Mass/Vol] 195 mg/dL Normal 100-199 [facility] Work Phone: Comment on above: PATIENT WAS FASTINGPERFORMED BY: [facility] [id number] Information: [id number] Cholesterol in HDL [Mass/Vol] 33 mg/dL Abnormal [facility] Work Phone: Comment on above: According to ATP-III Guidelines, HDL-C > 59 mg/dL is considered anegative risk factor for CHD. PATIENT WAS FASTINGP ERFORMED BY: [facility] [id number] Information: [id number] Cholesterol in LDL [Mass/Vol] 127 mg/dL Abnormal 0-99 [facility] Work Phone: Comment on above: PATIENT WAS FASTINGPERFORMED BY: [place] [id number] [id number] Information: [id number] Cholesterol in LDL/Cholesterol in HDL [Mass ratio] 3.8 {ratio_units} Abnormal 0.0-3.6 [facility] Work Phone: Comment on above: PATIENT WAS FASTINGPERFORMED BY: [facility] [id number] Information: [id number] Cholesterol in VLDL [Mass/Vol] 35 mg/dL Normal 5-40 [facility] Work Phone: Comment on above: PATIENT WAS FASTINGPERFORMED BY: [place] [id number] [id number] Information: [id number] Triglyceride [Mass/Vol] 175 mg/dL Abnormal 0-149 [facility] Work Phone: Comment on above: PATIENT WAS FASTINGPERFORMED BY: [facility] [id number] Information: [id number] PSA (PROSTATE SPECIFIC ANTIG EN) (V76.44)Ordered By: Human Resources File Clerk on 01-21-2013 Prostate specific Ag [Mass/Vol] 2.8 ng/mL Normal 0.0-4.0 [facility] Work Phone: Comment on above: Ozzy ECLIA methodology. .According to hafsa quinteros [employer], Serum PSA shoulddecrease and remain at undetectable levels after radicalprostatectomy. The AUA defines biochemical recurrence as an initialPSA value 0.2 ng/mL or greater followed by a subsequent confirmatoryPSA value 0.2 ng/mL or greater.Values obtained with different assay methods or kits cannot be usedinterchangeably. Results cannot be interpreted as absolute evidenceof the presence or absence of malignant disease. PATIENT WAS FASTINGP ERFORMED BY: [facility] [id number] FECAL OCCULT- Tubes sent dannielle e ([id number])Ordered By: Fabiola Connelly on 01-10-2013 Hemoglobin.gastr ointestinal Ql (Stl) Positive Normal [facility] Work Phone: Vital Signs Date Time Vital Sign Value Performing Clinician Facility 05-04-2023 11:00-0500 Body temperature 97.2 [degF] Dr. Dayanara Comer Work Phone: [facility] 05-04-2023 11:00-0500 Diastolic blood pressure 75 mm[Hg] Dr. Dayanara Comer Work Phone: [facility] 05-04-2023 11:00-0500 Heart rate 63 /min Dr. Dayanara Comer Work Phone: [facility] 05-04-2023 11:00-0500 Respiratory rate 16 /min Dr. Dayanara Comer Work Phone: [facility] 05-04-2023 11:00-0500 SaO2% (BldA) [Mass fraction] 97 % Dr. Dayanara Comer Work Phone: [facility] 05-04-2023 11:00-0500 Systolic blood pressure 112 mm[Hg] Dr. Dayanara Comer Work Phone: [facility] 05-04-2023 09:25-0500 Body height 180.[address] Dayanara Comer Work Phone: [facility] 05-04-2023 09:25-0500 Body mass index (BMI) [Ratio] 30.1 kg/m2 Dr. Dayanara Comer Work Phone: [facility] 05-04-2023 09:25-0500 Body weight 97.[address] Dayanara Comer Work Phone: [facility] 04-23-2023 09:48-0500 Body mass index (BMI) [Ratio] 31.8 kg/m2 Dr. Dayanara Comer Work Phone: [facility] 04-23-2023 09:48-0500 Body temperature 97.4 [degF] Dr. Dayanara Comer Work Phone: [facility] 04-23-2023 09:48-0500 Body weight 100.[address] Dayanara Comer Work Phone: [facility] 04-23-2023 09:48-0500 Diastolic blood pressure 85 mm[Hg] Dr. Dayanara Comer Work Phone: [facility] 04-23-2023 09:48-0500 Heart rate 73 /min Dr. Dayanara Comer Work Phone: [facility] 04-23-2023 09:48-0500 Respiratory rate 17 /min Dr. Dayanara Comer Work Phone: [facility] 04-23-2023 09:48-0500 SaO2% (BldA) [Mass fraction] 97 % Dr. Dayanara Comer Work Phone: [facility] 04-23-2023 09:48-0500 Systolic blood pressure 169 mm[Hg] Dr. Dayanara Comer Work Phone: [facility] 03-18-2019 10:00-0500 BMI (Body Mass Index) 30.28 kg/m2 Dayanara Comer [facility] Work Phone: 03-18-2019 10:00-0500 Body Temperature 97.5 [degF] Dayanara Comer [facility] Work Phone: Comment on above: Method: Temporal 03-18-2019 10:00-0500 Body weight 95.72 kg Dayanara Comer [facility] Work Phone: 03-18-2019 10:00-0500 BP Diastolic 80 mm[Hg] Dayanara Comer [facility] Work Phone: Comment on above: Patient Position: Sitting; Cuff Location : Left Arm; Cuff Size: Standard 03-18-2019 10:00-0500 BP Systolic 128 mm[Hg] Dayanara Comer [facility] Work Phone: Comment on above: Patient Position: Sitting; Cuff Location : Left Arm; Cuff Size: Standard 03-18-2019 10:00-0500 BSA (Body Surface Area) 2.14 m2 Dayanara Comer [facility] Work Phone: 03-18-2019 10:00-0500 Height 177.8 cm Dayanara Comer [facility] Work Phone: 03-18-2019 10:00-0500 Pulse (Heart Rate) 85 /min Dayanara Comer [facility] Work Phone: Comment on above: Pattern: Regular 03-18-2019 10:00-0500 Pulse Oximetry 95 % Dayanara Comer [facility] Work Phone: Comment on above: Room air 03-18-2019 10:00-0500 Respiratory Rate 16 /min Dayanara [facility] Work Phone: Comment on above: Pattern: Unlabored 03-04-2019 13:20-0500 BMI (Body Mass Index) 30.71 kg/m2 Dayanara Comer [facility] Work Phone: 03-04-2019 13:20-0500 Body Temperature 98.2 [degF] Dayanara Comer [facility] Work Phone: Comment on above: Method: Temporal 03-04-2019 13:20-0500 Body weight 97.08 kg Dayanara Comer [facility] Work Phone: 03-04-2019 13:20-0500 BP Diastolic 82 mm[Hg] Dayanara Comer [facility] Work Phone: Comment on above: Patient Position: Sitting; Cuff Location : Left Arm; Cuff Size: Standard 03-04-2019 13:20-0500 BP Systolic 152 mm[Hg] Dayanara Comer [facility] Work Phone: Comment on above: Patient Position: Sitting; Cuff Location : Left Arm; Cuff Size: Standard 03-04-2019 13:20-0500 BSA (Body Surface Area) 2.15 m2 Dayanara Comer [facility] Work Phone: 03-04-2019 13:20-0500 Height 177.8 cm Dayanara Comer [facility] Work Phone: 03-04-2019 13:20-0500 Pulse (Heart Rate) 96 /min Dayanara Comer [facility] Work Phone: Comment on above: Pattern: Regular 03-04-2019 13:20-0500 Pulse Oximetry 92 % Dayanara Comer [facility] Work Phone: Comment on above: Room air 03-04-2019 13:20-0500 Respiratory Rate 16 /min Dayanara Comer [facility] Work Phone: Comment on above: Pattern: Unlabored 02-14-2019 09:32-0500 BMI (Body Mass Index) 31.14 kg/m2 Dayanara Comer [facility] Work Phone: 02-14-2019 09:32-0500 Body Temperature 98.1 [degF] Dayanara Comer [facility] Work Phone: Comment on above: Method: Temporal 02-14-2019 09:32-0500 Body weight 98.43 kg Dayanara Comer [facility] Work Phone: 02-14-2019 09:32-0500 BP Diastolic 78 mm[Hg] Dayanara Comer [facility] Work Phone: Comment on above: Patient Position: Sitting; Cuff Location : Left Arm; Cuff Size: Standard 02-14-2019 09:32-0500 BP Systolic 130 mm[Hg] Dayanara Comer [facility] Work Phone: Comment on above: Patient Position: Sitting; Cuff Location : Left Arm; Cuff Size: Standard 02-14-2019 09:32-0500 BSA (Body Surface Area) 2.16 m2 Dayanara Comer [facility] Work Phone: 02-14-2019 09:32-0500 Height 177.8 cm Dayanara Comer [facility] Work Phone: 02-14-2019 09:32-0500 Pulse (Heart Rate) 81 /min Dayanara Comer [facility] Work Phone: Comment on above: Pattern: Regular 02-14-2019 09:32-0500 Pulse Oximetry 98 % Dayanara Comer [facility] Work Phone: Comment on above: Room air 02-14-2019 09:32-0500 Respiratory Rate 16 /min Dayanara Comer [facility] Work Phone: Comment on above: Pattern: Unlabored 03-06-2017 12:15-0500 BMI (Body Mass Index) 31.14 kg/m2 Dayanara Comer [facility] Work Phone: 03-06-2017 12:15-0500 Body Temperature 98.2 [degF] Dayanara Comer [facility] Work Phone: 03-06-2017 12:15-0500 Body weight 98.43 kg Dayanara Comer [facility] Work Phone: 03-06-2017 12:15-0500 BP Diastolic 76 mm[Hg] Dayanara Comer [facility] Work Phone: Comment on above: Patient Position: Sitting; Cuff Location : Left Arm; Cuff Size: Standard 03-06-2017 12:15-0500 BP Systolic 118 mm[Hg] Dayanara Comer [facility] Work Phone: Comment on above: Patient Position: Sitting; Cuff Location : Left Arm; Cuff Size: Standard 03-06-2017 12:15-0500 BSA (Body Surface Area) 2.16 m2 Dayanara Comer [facility] Work Phone: 03-06-2017 12:15-0500 Height 177.8 cm [facility]ara [facility] Work Phone: 03-06-2017 12:15-0500 Pulse (Heart Rate) 85 /min Dayanara Comer [facility] Work Phone: Comment on above: Pattern: Regular 03-06-2017 12:15-0500 Pulse Oximetry 97 % Day[facility]ara [facility] Work Phone: Comment on above: Room air 03-06-2017 12:15-0500 Respiratory Rate 16 /min Dayanara [facility] Work Phone: Comment on above: Pattern: Unlabored 01-08-2017 13:13-0500 BMI (Body Mass Index) 30.76 kg/m2 Dayanara Comer [facility] Work Phone: 01-08-2017 13:13-0500 Body weight 97.24 kg Dayanara [facility] Work Phone: 01-08-2017 13:13-0500 BP Diastolic 78 mm[Hg] Dayanara Comer [facility] Work Phone: Comment on above: Patient Position: Sitting; Cuff Location : Left Arm; Cuff Size: Large 01-08-2017 13:13-0500 BP Systolic 134 mm[Hg] Dayanara Comer [facility] Work Phone: Comment on above: Patient Position: Sitting; Cuff Location : Left Arm; Cuff Size: Large 01-08-2017 13:13-0500 BSA (Body Surface Area) 2.15 m2 [facility] Work Phone: 01-08-2017 13:13-0500 Height 177.8 cm Dayanara [facility] Work Phone: 01-08-2017 13:13-0500 Pulse (Heart Rate) 73 /min Dayanara Comer [facility] Work Phone: Comment on above: Pattern: Regular 01-08-2017 13:13-0500 Pulse Oximetry 97 % Dayanara Comer [facility] Work Phone: Comment on above: Room air 01-08-2017 13:13-0500 Respiratory Rate 15 /min Dayanara Comer [facility] Work Phone: Comment on above: Pattern: Unlabored 05-18-2015 08:03-0400 BMI (Body Mass Index) 30.76 kg/m2 Dayanara Comer [facility] Work Phone: 05-18-2015 08:03-0400 Body weight 97.24 kg Dayanara Comer [facility] Work Phone: 05-18-2015 08:03-0400 BP Diastolic 82 mm[Hg] Dayanara Comer [facility] Work Phone: Comment on above: Patient Position: Sitting; Cuff Location : Left Arm; Cuff Size: Large 05-18-2015 08:03-0400 BP Systolic 120 mm[Hg] Dayanara Comer [facility] Work Phone: Comment on above: Patient Position: Sitting; Cuff Location : Left Arm; Cuff Size: Large 05-18-2015 08:03-0400 BSA (Body Surface Area) 2.15 m2 Dayanara Comer [facility] Work Phone: 05-18-2015 08:03-0400 Height 177.8 cm Dayanara Comer [facility] Work Phone: 05-18-2015 08:03-0400 Pulse (Heart Rate) 84 /min Dayanara Comer [facility] Work Phone: Comment on above: Pattern: Regular 05-18-2015 08:03-0400 Pulse Oximetry 97 % Dayanara Comer [facility] Work Phone: Comment on above: Room air 05-18-2015 08:03-0400 Respiratory Rate 18 /min Dayanara Comer [facility] Work Phone: Comment on above: Pattern: Unlabored 05-11-2015 08:50-0500 BMI (Body Mass Index) 30.56 kg/m2 Dayanara Comer [facility] Work Phone: 05-11-2015 08:50-0500 Body Temperature 96.8 [degF] Dayanara Comer [facility] Work Phone: Comment on above: Method: Oral 05-11-2015 08:50-0500 Body weight 96.62 kg Dayanara Comer [facility] Work Phone: 05-11-2015 08:50-0500 BP Diastolic 82 mm[Hg] Dayanara Comer [facility] Work Phone: Comment on above: Patient Position: Sitting; Cuff Location : Left Arm; Cuff Size: Large 05-11-2015 08:50-0500 BP Systolic 122 mm[Hg] Dayanara Comer [facility] Work Phone: Comment on above: Patient Position: Sitting; Cuff Location : Left Arm; Cuff Size: Large 05-11-2015 08:50-0500 BSA (Body Surface Area) 2.14 m2 Dayanara Comer [facility] Work Phone: 05-11-2015 08:50-0500 Height 177.8 cm Dayanara Comer [facility] Work Phone: 05-11-2015 08:50-0500 Pulse (Heart Rate) 81 /min Dayanara Comer [facility] Work Phone: Comment on above: Pattern: Regular 05-11-2015 08:50-0500 Pulse Oximetry 94 % Dayanara Comer [facility] Work Phone: Comment on above: Room air 05-11-2015 08:50-0500 Respiratory Rate 18 /min Dayanara Comer [facility] Work Phone: Comment on above: Pattern: Wheezing 04-16-2015 09:21-0500 BMI (Body Mass Index) 30.56 kg/m2 Dayanara Comer [facility] Work Phone: 04-16-2015 09:21-0500 Body weight 96.62 kg Dayanara Comer [facility] Work Phone: 04-16-2015 09:21-0500 BP Diastolic 78 mm[Hg] Dayanara Comer [facility] Work Phone: Comment on above: Patient Position: Sitting; Cuff Location : Left Arm; Cuff Size: Large 04-16-2015 09:21-0500 BP Systolic 138 mm[Hg] Dayanara Comer [facility] Work Phone: Comment on above: Patient Position: Sitting; Cuff Location : Left Arm; Cuff Size: Large 04-16-2015 09:21-0500 BSA (Body Surface Area) 2.14 m2 Dayanara Comer [facility] Work Phone: 04-16-2015 09:21-0500 Height 177.8 cm Dayanara Comer [facility] Work Phone: 04-16-2015 09:21-0500 Pulse (Heart Rate) 91 /min Dayanara Comer [facility] Work Phone: Comment on above: Pattern: Regular 04-16-2015 09:21-0500 Pulse Oximetry 98 % Dayanara Comer [facility] Medicine Work Phone: Comment on above: Room air 04-16-2015 09:21-0500 Respiratory Rate 18 /min Dayanara Comer [facility] Work Phone: Comment on above: Pattern: Unlabored 02-24-2013 09:07-0500 BMI (Body Mass Index) 30.56 kg/m2 Dayanara Comer [facility] Work Phone: 02-24-2013 09:07-0500 Body Temperature 96.5 [degF] Dayanara Comer [facility] Work Phone: 02-24-2013 09:07-0500 Body weight 96.62 kg Dayanara Comer [facility] Work Phone: 02-24-2013 09:07-0500 BP Diastolic 80 mm[Hg] Dayanara Comer [facility] Work Phone: Comment on above: Patient Position: Sitting; Cuff Location : Left Arm; Cuff Size: Large 02-24-2013 09:07-0500 BP Systolic 106 mm[Hg] Dayanara Comer [facility] Work Phone: Comment on above: Patient Position: Sitting; Cuff Location : Left Arm; Cuff Size: Large 02-24-2013 09:07-0500 BSA (Body Surface Area) 2.14 m2 Dayanara Comer [facility] Work Phone: 02-24-2013 09:07-0500 Height 177.8 cm Dayanara Comer [facility] Work Phone: 02-24-2013 09:07-0500 Pulse (Heart Rate) 82 /min Dayanara Comer [facility] Work Phone: Comment on above: Pattern: Regular 02-24-2013 09:07-0500 Pulse Oximetry 96 % Dayanara Comer [facility] Work Phone: Comment on above: Room air 02-24-2013 09:07-0500 Respiratory Rate 18 /min Dayanara Comer [facility] Work Phone: Comment on above: Pattern: Unlabored 01-10-2013 14:12-0500 BMI (Body Mass Index) 30.61 kg/m2 Dayanara Comer [facility] Work Phone: 01-10-2013 14:12-0500 Body weight 96.76 kg Dayanara Comer [facility] Work Phone: 01-10-2013 14:12-0500 BP Diastolic 60 mm[Hg] Dayanara Comer [facility] Work Phone: Comment on above: Patient Position: Sitting; Cuff Location : Left Arm; Cuff Size: Large 01-10-2013 14:12-0500 BP Systolic 128 mm[Hg] Dayanara Comer [facility] Work Phone: Comment on above: Patient Position: Sitting; Cuff Location : Left Arm; Cuff Size: Large 01-10-2013 14:12-0500 BSA (Body Surface Area) 2.15 m2 Dayanara Comer [facility] Work Phone: 01-10-2013 14:12-0500 Height 177.8 cm Dayanara Knox [facility] Work Phone: 01-10-2013 14:12-0500 Pulse (Heart Rate) 60 /min Dayanara Knox [facility] Work Phone: Comment on above: Pattern: Regular 01-10-2013 14:12-0500 Respiratory Rate 18 /min Dayanara Knox [facility] Work Phone: Comment on above: Pattern: Unlabored Encounters Encounter Date Encounter Type Care Provider Facility Start: 09-12-2024 ambulatory Zayda Milldale Facili ty:[facility] Start: 03-08-2024 End: 03-08-2024 ambulatory Zayda Milldale Facility:[facility] Start: 08-11-2023 End: 08-11-2023 ambulatory Dayanara Comer Facility:[facility] Start: 06-25-2023 End: 06-25-2023 ambulatory Dayanara Comer Facility:[facility] Start: 05-04-2023 Non-patient / Non-visit Dr. Dayanara Comer Work Phone: [facility] Start: 05-04-2023 End: 05-04-2023 Admission to same day surgery center Dr. Dayanara Comer Work Phone: [facility] Work Phone: Start: 05-04-2023 End: 05-04-[address] Dayanara Comer Work Phone: [facility] Work Phone: Start: 04-23-2023 End: 04-23-[address] Dayanara Comer Work Phone: [facility] Work Phone: Start: 04-23-2023 End: 04-23-2023 ambulatory Dayanara Comer Facility:[facility] Start: 03-18-2019 End: 03-18-2019 Office outpatient visit 15 minutes Dayanara Knox [facility] Start: 03-16-2019 End: 03-16-2019 Annotation/Addendum Dayanara Knox Program Services [facility]anner [facility] Medicine Start: 03-04-2019 End: 03-04-2019 Office outpatient visit 15 minutes Dayanara Comer [facility] Start: 02-14-2019 End: 02-14-2019 Office outpatient visit 15 minutes Dayanara Comer [facility] Start: 03-06-2017 End: 03-06-2017 Office outpatient visit 15 minutes Dayanara Comer [facility] Start: 01-08-2017 End: 01-08-2017 Office outpatient visit 15 minutes Dayanara Comer [facility] Start: 05-18-2015 End: 05-18-2015 Office outpatient visit 10 minutes Dayanara Comer [facility] Start: 05-11-2015 End: 05-14-2015 Office outpatient visit 15 minutes Dayanara Comer [facility] Start: 04-16-2015 End: 04-16-2015 Office outpatient visit 15 minutes Dayanara Comer [facility] Start: 04-05-2013 End: 04-05-2013 Phone Encounter Dayanara Knox Program Services [facility] Start: 02-24-2013 End: 02-24-2013 Patient encounter procedure Dayanara Comer [facility] Start: 01-10-2013 End: 01-10-2013 Patient encounter procedure Dayanara Comer [facility] Procedures Date Procedure Procedure Detail Performing Clinician Start: 05-04-[address] Varinder Comer Work Phone: Start: 03-16-2019 End: 03-16-2019 Chest PA and Lateral Comments: See Note; NOTES: [facility] Imaging Services [address] [place] [address] Chest PA and Lateral MR#: [id number] Acct: [id number] Name: FEDERICA CONNOR Rep #: [id number] : 1955 M 63 From: Angel Cummings MD PCP: Dayanara Comer DO Status: REG CLI Study: Chest PA and Lateral Date of Exam: 03/16/19 Exam# [id number] Ordering Dr: Cherise Richardson SALES SERVICE PROFESSIONAL-C STUDY: X-RAY CHEST REASON FOR EXAM: Male, [...] , CC: FRIEDA Richardson; Dayanara Comer DO Wound/Ostomy Nurse: Signed Cherise Richardson Work Phone: Start: 08-01-2013 End: 08-01-2013 Emergency Department Summary Comments: See Note; NOTES: [facility] Medical Records Department [address] [place] [address] Emergency Department Summary MR#: [id number] Acct: [id number] Name: FEDERICA CONNOR Rep #: [id number] : 1955 57 From: Aristides Shaw MD PCP: Dayanara Comer DO Status: [facility] ER DATE OF SERVICE: 07/25/2013 METHOD OF ARRIVAL: Private car. CHIEF COMPLAINT: Right thigh pain. HISTORY OF PRESENT ILLNESS: A 57-year-old male patient of Dr. Comer who was running to [facility] had acute onset of pain in his [...] Nkechi Weinberg C: Dayanara Comer DO T: NTS JOB: [id number] 08/01/13 1939 <Electronically signed by Aristides Shaw MD> Date Aristides Shaw MD CC: Dayanara Comer DO Date Dictated: 07/29/1345 Date Transcribed: 07/29/13944 Wound/Ostomy Nurse: Signed Dayanara Comer Start: 07-25-2013 End: 07-26-2013 Discharge Instruction Comments: See Note; NOTES: [facility] Medical Records Department [address] [place] [address] Discharge Instruction 07/25/13 2250 MR#: [id number] Acct: [id number] Name: FEDERICA CONNOR Rep #: [id number] : 1955 57 From: Aristides Shaw MD PCP: Dayanara Comer DO Status: [facility] ER ED Disposition - Plan for ED Patient: Chief Complaint: Lower Extremity Injury Instructions: MUSCLE STRAIN, Extremity Prescriptions: Hydrocodone Bitart/Apap 5-325 [Salem 5/325] 1 - 2 tablet PO Q4H [...] Emergency Room. Call 911 if necessary. 07/25/13 5940 <Electronically signed by Aristides Shaw MD> Date Aristides Shaw MD CC: Dayanara Holbrook Rotator Cuff Repair - Left Angel Vazquez Comment on above: Pritesh Rosales Screening colonoscopy Angel Vazquez Plan of Treatment Date Care Activity Detail Author Start: 05-04-2023 Patient discharge [facility] Start: 03-18-2019 Procedure Education Eprescribe d prescriptions (G8553) [facility] Work Phone: Start: 03-16-2019 Fibrin dgradj produc ts d-dimer quantitative D-Dimer (79731) [facility] Work Phone: Comment on above: STAT Start: 03-16-2019 Comprehensive metabo lic panel METABOLIC PANEL, COMPREHENSIVE (96089) [facility] Work Phone: Start: 03-16-2019 Blood count complete automated CBC & PLATELETS (AUTO) (97304) [facility] Work Phone: Start: 03-04-2019 Procedure Education Eprescribe d prescriptions (G8553) [facility] Work Phone: Start: 03-04-2019 Provider Instruction s for Treatment Follow up if no improvement or if symptoms worsen [facility] Work Phone: Start: 02-14-2019 Patient Education Cough: upper respiratory infection [facility] Work Phone: Start: 02-14-2019 Procedure Education Eprescribe d prescriptions (G8553) [facility] Work Phone: Start: 02-14-2019 Provider Instruction s for Treatment Follow up if no improvement or if symptoms worsen [facility] Work Phone: Start: 03-06-2017 Procedure Education Eprescribe d prescriptions (G8553) [facility] Work Phone: Start: 03-06-2017 Provider Instruction s for Treatment Follow up as needed [facility] Work Phone: Start: 01-08-2017 Provider Instruction s for Treatment Follow up if no improvement or if symptoms worsen [facility] Work Phone: Start: 05-18-2015 Provider Instruction s for Treatment Continue Current Prescription(s) [facility] Work Phone: Start: 05-11-2015 Patient Education Asthma: Brie f Version *: wheezing [facility] Work Phone: Start: 05-11-2015 Procedure Education Eprescribe d prescriptions (G8553) [facility] Work Phone: Start: 05-11-2015 Provider Instruction s for Treatment [facility] Work Phone: Start: 04-16-2015 Procedure Education Eprescribe d prescriptions (G8553) [facility] Work Phone: Start: 04-05-2013 Blood occult peroxid ase actv qual feces 1 deter Stool [place], Office (39388) [facility] Work Phone: Start: 02-24-2013 Patient Education Cough: cough [facility] Work Phone: Start: 01-10-2013 Provider Instruction s for Treatment *Colon Cancer Screening [facility] Work Phone: Colonoscopy [facility] Patient referral [facility] Work Phone: [facility] Work Phone: [facility] Work Phone[facility] Work Phone: [facility] Work Phone: [facility] Work Phone: [facility] Work Phone: [facility] Work Phone: Payers Date Payer Category Payer Unknown [id number] 2023 Self-pay [id number] Unknown [employer] [id number] Unknown [id number] [id number] [id number] Unknown [id number] 2.16.8 [id number] Unknown [id number] 2.16.8 [id number] Unknown [id number] 2.16.8 [id number] Unknown [id number] 2.16.8 [id number] Unknown [id number] 2.16.8 [id number] Unknown [id number] 2.16.8 [id number] Social History Date Type Detail Facility Exercise History: Exercise History: [facility] Work Phone: Living Situation: Living Situation: [facility] Work Phone: No Caffeine Use No Caffeine Use [facility]pre[facility] Work Phone: Tobacco use: Tobacco use: [facility] Work Phone: Start: 04-28-2023 Tobacco smoking status NHIS Unknown if ever smoked [facility] Start: 1955 Sex Assigned At Male [facility] Goals Date Patient Goal Desired Activity /State Mental Status Date Assessment Result Facility 05-04-2023 Cognitive function Voice/Name [facility] Work Phone: History and physical note 05-04-2023 Note Date & Type Note Facility 05-04-2023 History and physi ilene note Note Date/Time May 04, 2023 9:34am [facility] Medical Records Department [address] [place] [address] History & Physical Exam 05/04/23 0933 MR#: [id number] Acct: [id number] Name: GEETA,FEDERICA Shy Rep #:[id number] : 1955 67 From: Lakeisha Godwin MD PCP: Dr. Dayanara Comer, DO Status:[facility] Location: [place] [address] History and Physical Date of Admission: 05/04/23 Date of Service: 04/23/23 MR#: [id number] Acct: [id number] Name: FEDERICA CONNOR Rep #: [id number] : 1955 Provider: Dr. Lakeisha Godwin MD Age/Sex: 67/M Location: [facility] Status: Signed Intake Vital Signs 06/03/2310:05 04/23/2408:48 Height 5 ft 10 in 5 ft 10 in Weight: 217 lb 222 lb 6 oz BMI 31.1 31.8 BP 152/94 H 169/85 H Blood Pressure Location Lt brachial Rt brachial Position Sitting Sitting Respiration 16 17 Pulse 72 73 Pulse Source Monitor Monitor Temp 98.2 F 97.4 F L Temp Source Temporal Temporal Pulse Oximetry (%) 97 97 Oxygen Delivery Method room air room air Intake Visit Reasons: COLONOSCOPY SCREENING, LARGE ON BACK Chief Complaint: colonoscopy screening, large lipoma on back Vocational Nursing Instructor Required: No Is patient in pain?: No Allergies No Known Allergies Allergy (Verified 04/23/23 09:49) Medications alprazolam 0.5 mg tablet (Xanax) 0.5 mg PO DAILY #1 TAB 06/03/22 [Rx Confirmed 04/23/23] ferrous sulfate 325 mg (65 mg iron) tablet (Feosol) 325 mg PO DAILY 06/03/22 [History Confirmed 04/23/23] PFSH Medical History (Updated 04/23/23 @ 12:[address] Lakeisha Godwin MD) Strain of tendon of right rotator cuff Surgical History (Updated 04/23/23 @ 09:47 by Lissy Tavarez LPN) History of colonoscopy History of rotator cuff surgery Family History Father CVA (cerebral vascular accident) Social History (Updated 04/23/23 @ 09:48 by Lissy Tavarez LPN) Smoking Status: Never smoker alcohol intake: never substance use type: does not use HPI HPI HPI: 67-year-old male presents due to history of colon polyps for colonoscopy and right upper back cyst. Patient last colonoscopy was 04/2010 patient had a hyperplastic polyp removed from his rectum at that time. Patient has bowel movements daily, denies any blood. Patient denies any chronic abdominal pain/nausea/vomiting/reflux. Patient denies any family history of colon cancer. Patient states he has had this right back lesion for about 15 years states thathas gotten larger denies any pain. Patient denies ever having this area infected or change in overlying skin. ROS General General: No weight change, appetite, fatigue, colon cancer or breast cancer HEENT HEENT: No difficulty swallowing, eye injury, eye surgery, swollen glands or hoarseness Endo Endocrine: No thyroid disease, diabetes mellitus, thyroid cancer, Hair loss, heat intolerance or cold intolerance Skin Skin: No rash or changing moles Musc Musculoskeletal: No back problems, arthritis, rheumatoid arthritis, gout or joint pain Cardio Cardiovascular: No murmur, pacemaker, heart disease, atrial fibrillation, high blood pressure, heart attack, heart stent, palpitations, shortness of breat withexertion or chest pain Psych Psychiatric: No depression, anxiety or hearing voices Resp Respiratory: No shortness of breath, No sleep apnea, No cough, No COPD, No asthma, No emphysema and No wheezing Gastro Gastrointestinal: No abdominal pain, No nausea or vomiting, No diarrhea, No constipation, No blood in stool, No acid reflux, No hemorrhoids, No ulcers, No gallbladder problem and No black,tarry stools Cheikh Hematologic: No blood thinners, No blood disorders, No bleeding, No anemia and No blood clots Exam Const General: cooperative, healthy appearing, comfortable and no acute distress HENMT Head: normocephalic and atraumatic Neck Neck: supple Resp Effort & Inspection: normal respiratory effort Cardio Rate: regular rate GI Inspection: non-distended Palpation: soft and nontender Skin Other: Right medial upper back 6 x 6 cm likely sebaceous cyst, soft, nontender, no changes to the overlying skin. Neuro General: CN's II-XI intact bilaterally Extrem General: normal to inspection Psych Mental Status: mental status grossly normal Attitude: cooperative Assessment and Plan Assessment and Plan (1) Subcutaneous nodule of back: Status: Acute Comment: likely cyst vs lipoma (2) Hx of colonic polyp: Status: Acute Plan Discussed with patient that we can excise his right upper back lesion possible cyst versus lipoma in office. Patient can make an appointment whenever works for his schedule. Did discuss the procedure including risk not limited to bleeding, infection. I have discussed the above with the patient. I have offered the patient colonoscopy for evaluation. I have explained the risks/benefits of the procedure and described the procedure. I have discussed the risks with the patient, including but not limited to: infection, bleeding, perforation of the GI tract requiring emergency surgery, inability to complete the procedure, injury to any internal organs, complications of anesthesia, etc. - the patient understands and agrees to proceed. I have answered all the patient's questions to the patient's satisfaction and the patient has no further questions. The patient has been given instructions for the colon cleansing preparation. 1 day of clears MiraLAX Dulcolax prep Lakeisha Godwin M.D. Pager: [phone] [facility] [address] [place] [address], [address] [place] [id number] Office: [phone] Coding Level of Care Code Off vis,new,level 3 Diagnoses Subcutaneous nodule of back R22.2 Hx of colonic polyp Z86.010 04/23/23 1217 <Electronically signed by Lakeisha Godwin MD> Date Lakeisha Godwin MD 05/04/23 0934 <Electronically signed by Lakeisha Godwin MD> Cosigner Signature (if applicable): CC: Dr. Dayanara Comer, DO; Dr. Lakeisha Godwin MD~ Signed ADDENDUM by Dr. Lakeisha Godwin MD on 05/04/23 at 0934 Addendum I have examined the patient and the H&P has been reviewed. There are no clinicalchanges since date of exam. 05/04/23 0934<Electronically signed by Lakeisha Godwin MD> Cosigner Signature (if applicable): cc: Dr. Dayanara Comer DO; Dr. Lakeisha Godwin MD ~* Signed ADDENDUM by Dr. Lakeisha Godwin MD on 05/04/23 at 0944 Addendum Addendum: I have examined the patient and the H&P has been reviewed. There are no clinicalchanges since date of exam. 05/04/23 0944<Electronically signed by Lakeisha Godwin MD> Cosigner Signature (if applicable): cc: Dr. Dayanara Comer DO; Dr. Lakeisha Godwin MD ~* Signed [facility] Work Phone: Procedure note 05-04-2023 Note Date & Type Note Facility 05-04-2023 Procedure note [facility] Procedure note 05-04-2023 Note Date & Type Note Facility 05-04-2023 Procedure note [facility] Clinical Note 05-04-2023 Note Date & Type Note Facility 05-04-2023 Note [facility] Medical Records Department [address] [place] [address] History Physical Exam 05/04/23 0933 MR#: [id number] Acct: [id number] Name: FEDERICA CONNOR Shy Rep #: [id number] : 1955 67 From: Lakeisha Godwin MD PCP: Dr. Dayanara Comer DO Status:[facility] Location: [place] [address] History and Physical Date of Admission: 05/04/23 Date of Service: 04/23/23 MR#: [id number] Acct: [id number] Name: GEETAFEDERICA Bolden Rep #: [id number] : 1955 Provider: Dr. Lakeisha Godwin MD Age/Sex: 67/M Location: [facility] Status: Signed Intake Vital Signs 06/03/2310:05 04/23/2408:48 Height 5 ft 10 in 5 ft 10 in Weight: 217 lb 222 lb 6 oz BMI 31.1 31.8 BP 152/94 H 169/85 H Blood Pressure Location Lt brachial Rt brachial Position Sitting Sitting Respiration 16 17 Pulse 72 73 Pulse Source Monitor Monitor Temp 98.2 F 97.4 F L Temp Source Temporal Temporal Pulse Oximetry (%) 97 97 Oxygen Delivery Method room air room air Intake Visit Reasons: COLONOSCOPY SCREENING, LARGE ON BACK Chief Complaint: colonoscopy screening, large lipoma on back Vocational Nursing Instructor Required: No Is patient in pain?: No Allergies No Known Allergies Allergy (Verified 04/23/23 09:49) Medications alprazolam 0.5 mg tablet (Xanax) 0.5 mg PO DAILY #1 TAB 06/03/22 [Rx Confirmed 04/23/23] ferrous sulfate 325 mg (65 mg iron) tablet (Feosol) 325 mg PO DAILY 06/03/22 [History Confirmed 04/23/23] [facility] Medical History (Updated 04/23/23 @ 12:[address] Lakeisha Godwin MD) Strain of tendon of right rotator cuff Surgical History (Updated 04/23/23 @ 09:47 by Lissy Tavarez LPN) History of colonoscopy History of rotator cuff surgery Family History Father CVA (cerebral vascular accident) Social History (Updated 04/23/23 @ 09:48 by Lissy Tavarez LPN) Smoking Status: Never smoker alcohol intake: never substance use type: does not use HPI HPI HPI: 67-year-old male presents due to history of colon polyps for colonoscopy and right upper back cyst. Patient last colonoscopy was 04/2010 patient had a hyperplastic polyp removed from his rectum at that time. Patient has bowel movements daily, denies any blood. Patient denies any chronic abdominal pain/nausea/vomiting/reflux. Patient denies any family history of colon cancer. Patient states he has had this right back lesion for about 15 years states that has gotten larger denies any pain. Patient denies ever having this area infected or change in overlying skin. ROS General General: No weight change, appetite, fatigue, colon cancer or breast cancer HEENT HEENT: No difficulty swallowing, eye injury, eye surgery, swollen glands or hoarseness Endo Endocrine: No thyroid disease, diabetes mellitus, thyroid cancer, Hair loss, heat intolerance or cold intolerance Skin Skin: No rash or changing moles Musc Musculoskeletal: No back problems, arthritis, rheumatoid arthritis, gout or joint pain Cardio Cardiovascular: No murmur, pacemaker, heart disease, atrial fibrillation, high blood pressure, heart attack, heart stent, palpitations, shortness of breat with exertion or chest pain Psych Psychiatric: No depression, anxiety or hearing voices Resp Respiratory: No shortness of breath, No sleep apnea, No cough, No COPD, No asthma, No emphysema and No wheezing Gastro Gastrointestinal: No abdominal pain, No nausea or vomiting, No diarrhea, No constipation, No blood in stool, No acid reflux, No hemorrhoids, No ulcers, No gallbladder problem and No black,tarry stools Cheikh Hematologic: No blood thinners, No blood disorders, No bleeding, No anemia and No blood clots Exam Const General: cooperative, healthy appearing, comfortable and no acute distress HENMT Head: normocephalic and atraumatic Neck Neck: supple Resp Effort Inspection: normal respiratory effort Cardio Rate: regular rate GI Inspection: non-distended Palpation: soft and nontender Skin Other: Right medial upper back 6 x 6 cm likely sebaceous cyst, soft, nontender, no changes to the overlying skin. Neuro General: CN's II-XI intact bilaterally Extrem General: normal to inspection Psych Mental Status: mental status grossly normal Attitude: cooperative Assessment and Plan Assessment and Plan (1) Subcutaneous nodule of back: Status: Acute Comment: likely cyst vs lipoma (2) Hx of colonic polyp: Status: Acute Plan Discussed with patient that we can excise his right upper back lesion possible cyst versus lipoma in office. Patient can make an appointment whenever works for his schedule. Did discuss the proce (more content not included)... [facility] Evaluation note Note Date & Type Note Facility Evaluation note Diagnosis Onset Date Hx of colonic polyp acute Subcutaneous nodule of back acute [facility] Work Phone: Instructions Name Dates Details How to access health informa [employer] online Indication:Non-smoker Start:18-Mar-2019 Instruction Type:Patient Education How to access health informa [employer] online - Detail Indication:Non-smoker Start:18-Mar-2019 Instruction Type:Patient [...] HYPERLIPIDEMIA Start:10-Jan-2013 Instruction Type:Provider Instructions for Treatment Chief Complaint and Reason for Visit Chief Complaint COLONOSCOPY SCREENIN G, LARGE ON BACK Reason for Visit Hx of colonic polyp Subcutaneous nodule of back Advance Directives No Advanced Directives Records Found Advance Directive Response Recorded Date/ Time Living Will No April 28 12:07pm Power of Cost And Risk Analysis Manager No April 28, 2023 12:07pm Summary Purpose Family History No Family History Records Found Additional Source Comments Care Teams (unrecognized sec tion and content) Team Status: Active Member Role Status Dates Dr. Dayanara Comer DO Family Provider Active Dr. Dayanara Comer DO Primary Care Provider Active Team Status: Inactive Member Role Status Dates Dr. Dayanara Comer DO Primary Care Provider, Referr ing Provider Active Dr. Lakeisha Godwin MD Attending Provider Active Team Status: Active Member Role Status Dates Dr. Dayanara Comer DO Primary Care Provider, Referr ing Provider Active Dr. Lakeisha Godwin MD Attending Provider, Other Pro vider Active (unrecognized sect ion and content) No Status Records Found INFORMATION SOURCE (unrecogn ized section and content) DATE CREATED AUTHOR 03/29/2024 [facility] FOR RECORDS PERTAINING TO PATIENTS WHO ARE [...] BE BASED ON THE PRIMARY CLINICAL RECORDS. [facility]. provides no warranty or guarantee of the accuracy or completeness of information in this document.
== END | disposition home or self-care (01) ==
LOC: LAB 08:43
PROVIDERS: PCP Internal Medicine; Referring Provider Urology; Visit Provider Urology
DX: C61 Malignant neoplasm of prostate (principal)
CPT/HCPCS: 36415; 84153